=== PATIENT | male | born 1975 | race Caucasian/White ===

== ENCOUNTER 2016-09-11 12:46 | Emergency (ER) | payer SELFPAY ==
[~2016-09-11] VITALS: Ht 177.8 cm; Wt 140.6 kg
[~2016-09-11 12:46] MED LIST: DULO60CA6; INDO50CA PO; SULF1TAB23 PO; WARF7.5T
--- OUTSIDE RECORDS SUMMARY | 2016-09-11 12:52 | XMS REPORT | Continuity of Care Document ---
Author Author [facility] Organization [facility] Address Unknown Phone Unavailable Care Team Providers [facility] Name Role Phone David Yuan PCP [phone] Source Comments Some departments are not documenting in the electronic medical record. If you do not see the information that you expected, contact Release of Information in the Health Information Management department at [phone] for further assistance in locating additional records.[facility] Active Allergies and Adverse Reactions No Known Allergies Current Medications Prescription Sig. Disp. Refills Start End Date Status Date DULOXETINE HCL (CYMBALTA Take 120 mg by mouth Active PO) Daily. acetaminophen 650 mg Tab Take 1 Tab by mouth Every 10/08/19 Active 4-6 Hours as needed for 09 Fever > ... and Pain. FOR PAIN/FEVER enoxaparin (LOVENOX) 100 Inject 1.2 mL into 14 0 10/08/19 Active mg/mL Soln area(s) as directed Twice 09 Daily. nystatin (NYSTOP) 100,000 Apply to affected area 1 0 10/08/19 Active unit/g topical powder As Needed. 09 vancomycin (VANCOCIN) Administer 2,000 mg 1 0 10/08/19 Active 1000 mg/20 mL IVPB SolR through vein Every 8 09 2,000 mg Hours. warfarin (COUMADIN) 5 mg Take 1 Tab by mouth At 30 2 10/08/19 Active tablet Bedtime Daily. 09 acetaminophen/codeine Take 1 Tab by mouth Every 20 0 10/08/19 Active (TYLENOL NO.3) 300/30 mg 6 Hours as needed for 09 tablet Pain. Active Problems Problem Noted Date DVT 10/07/2008 Resolved Problems Problem Noted Date Resolved Date Sepsis(995.91) 10/07/2008 10/07/2008 Infection 09/29/2008 10/07/2008 Social History Tobacco Use Types Packs/Day Years Used Date Current Every Day Smoker Comments: not specified years and packs Alcohol Use Drinks/Week oz/Week Comments Yes not specified years and amount Last Filed Vital Signs Vital Sign Reading Time Taken Blood Pressure 114/81 10/07/2008 11:51 AM CDT Pulse 114 10/07/2008 11:51 AM CDT Temperature 36.5 C (97.7 F) 10/07/2008 11:51 AM CDT Respiratory Rate - - Height 1.753 m (5' 9") 10/01/2008 2:00 PM CDT Weight 124 kg (273 lb 5.9 oz) 10/01/2008 2:00 PM CDT Body Mass Index 40.35 10/01/2008 2:00 PM CDT Oxygen Saturation 95% 10/07/2008 11:51 AM CDT Plan of Care Health Maintenance Due Date Last Done Comments Physical (Comprehensive) 12/02/1983 Exam Pertussis Vaccine 12/02/1987 Tetanus Vaccine 1993 Influenza Vaccine 03/02/2016 Results from Last 3 Months Not on file
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
[2016-09-11 19:41] VITALS: BP 134/88
== END 2016-09-11 16:27 | disposition home or self-care (01) ==
LOC: EDUNIT# 12:46 → ER 12:48
DX: Z04.1 Encounter for examination and observation following transport accident (principal)
CPT/HCPCS: 99281

== ENCOUNTER 2017-11-03 06:06 | Emergency (ER) | payer BC, OTHER ==
[~2017-11-03] VITALS: Ht 177.8 cm; Wt 145.1 kg
[2017-11-03] MEDS ORDERED: fentaNYL INJECTION 100 MCG/2 ML AMP IVP STA (06:25)
[2017-11-03] MEDS ORDERED: KETOROLAC 30 MG/ML VIAL IVP STA (06:25)
[2017-11-03] MEDS ORDERED: NS IV 1000 ML 1,000 ML IV STA (06:25)
[2017-11-03] MEDS ORDERED: ONDANSETRON 4 MG/2 ML (SDV) Z0FRAN IVP ONE (06:30)
[2017-11-03 06:32] LABS: BASOPHILS # (AUTO) 0.2 10^3/uL (0.0-0.1); BASOPHILS % (AUTO) 2 % (0-10); EOSINOPHILS # (AUTO) 0.5 10^3/uL (0.0-0.3); EOSINOPHILS % (AUTO) 6 % (0-10); HEMATOCRIT 47 % (40-54); HEMOGLOBIN 16.2 G/DL (13.3-17.7); LYMPHOCYTES # (AUTO) 2.6 X 10^3 (1.0-4.0); LYMPHOCYTES % (AUTO) 31 % (12-44); MEAN CORPUSCULAR HEMOGLOBIN 29 PG (25-34); MEAN CORPUSCULAR HGB CONC 34 G/DL (32-36); MEAN CORPUSCULAR VOLUME 86 FL (80-99); MEAN PLATELET VOLUME 11.4 FL (7.4-10.4); MONOCYTES # (AUTO) 1.2 X 10^3 (0.0-1.0); MONOCYTES % (AUTO) 14 % (0-12); NEUTROPHILS # (AUTO) 4.1 X 10^3 (1.8-7.8); NEUTROPHILS % (AUTO) 48 % (42-75); PLATELET COUNT 214 10^3/uL (130-400); RED BLOOD COUNT 5.51 10^6/uL (4.35-5.85); RED CELL DISTRIBUTION WIDTH 14.3 % (10.0-14.5); WHITE BLOOD COUNT 8.6 10^3/uL (4.3-11.0)
--- NOTE | 2017-11-03 06:34 | ED Lower Extremity ---
General Chief Complaint: Lower Extremity Stated Complaint: POSS DVT, RIGHT LEG Source: patient Exam Limitations: no limitations History of Present Illness Date Seen by Provider: November 03, 2017 Time Seen by Provider: 06:15 Initial Comments Here with complaint of right leg pain normal on for a couple weeks but worse over the last couple of days. Reports he has history of blood clots in his leg is supposed to be on blood thinners. He has been off of those for 2 days and has had markedly worsening pain to the right upper thigh in the medial aspect. States it hurts when he coughs. Also notes nausea and diarrhea over the last couple weeks. Family history of factor V Leiden. Pain bad enough that he had to come in today from work. States that he cannot take the pain anymore. He did take a few acetaminophen tablets this morning. Onset: last week Severity: moderate, severe Pain/Injury Location: right leg, right thigh Method of Injury: unknown Modifying Factors: Improves With Immobilization; Worse With Movement Allergies and Home Medications Allergies Coded Allergies: No Known Drug Allergies (Verified , 09/28/08) Home Medications Hydrocodone Bit/Acetaminophen 1 Tab Tab, 1-2 EACH PO Q6H PRN for PAIN-MODERATE Prescribed by: DIANA SINCLAIR on 11/03/17 0807 Naproxen 500 Mg Tablet, 500 MG PO BID PRN for PAIN-MILD TO MODERATE Prescribed by: DIANA SINCLAIR on 11/03/17 0807 Patient Home Medication List Home Medication List Reviewed: Yes Constitutional: see HPI; No chills, No fever Respiratory: no symptoms reported; No cough, No short of breath Cardiovascular: No chest pain, No edema Gastrointestinal: No abdominal pain; diarrhea, nausea, vomiting Genitourinary: no symptoms reported Musculoskeletal: see HPI, muscle pain; No muscle weakness Skin: change in color; No lesions Psychiatric/Neurological: Denies Headache, Denies Weakness All Other Systems Reviewed Negative Unless Noted: Yes Past Uvboucf-Liamwj-Bgztqm Hx Past Med/Social Hx: Reviewed Nursing Past Med/Soc Hx Patient Social History Alcohol Use: Denies Use Recreational Drug Use: No Smoking Status: Current Everyday Smoker Type Used: Cigarettes 2nd Hand Smoke Exposure: No Recent Foreign Travel: No Contact w/Someone Who Travel: No Recent Hopitalizations: No Seasonal Allergies Seasonal Allergies: No Past Medical History Surgeries: Yes (VEIN STRIPPING SURG IN LEG ) Respiratory: No Cardiac: Yes (SVT) Deep Vein Thrombosis, Irregular Heartbeat Neurological: No Reproductive Disorders: No Genitourinary: No Gastrointestinal: No Musculoskeletal: No Endocrine: Yes Diabetes, Non-Insulin dep HEENT: No Cancer: No Psychosocial: No Blood Disorders: No Family Medical History Other Conditions/Hx (factor V Leiden, DVT) Physical Exam Vital Signs Vital Signs - First Documented 11/03/17 06:13 Temp 97.2 Pulse 92 Resp 22 B/P (MAP) 157/91 (113) Pulse Ox 99 O2 Delivery Room Air Capillary Refill : General Appearance: WD/WN, no apparent distress Neck: full range of motion, supple Cardiovascular: regular rate, rhythm, no murmur Respiratory: lungs clear, normal breath sounds Gastrointestinal: non tender, soft Legs: left leg non-tender, left leg normal inspection; bilateral leg normal range of motion; right leg soft tissue tenderness, right leg swelling, right leg other (tenderness along the medial aspect of the right upper leg and the right calf area.) Feet: bilateral foot non-tender, bilateral foot normal inspection, bilateral foot normal range of motion Neurologic/Tendon: normal sensation, normal motor functions Neurologic/Psychiatric: alert, oriented x 3 Skin: warm/dry, other (erythema to the right upper thigh medially) Progress/Results/Core Measures Results/Orders Lab Results Laboratory Tests Test 11/03/17 06:20 11/03/17 07:40 Range/Units White Blood Count 8.6 4.3-11.0 10^3/uL Red Blood Count 5.51 4.35-5.85 10^6/uL Hemoglobin 16.2 13.3-17.7 G/DL Hematocrit 47 40-54 % Mean Corpuscular Volume 86 80-99 FL Mean Corpuscular Hemoglobin 29 25-34 PG Mean Corpuscular Hemoglobin Concent 34 32-36 G/DL Red Cell Distribution Width 14.3 10.0-14.5 % Platelet Count 214 130-400 10^3/uL Mean Platelet Volume 11.4 H 7.4-10.4 FL Neutrophils (%) (Auto) 48 42-75 % Lymphocytes (%) (Auto) 31 12-44 % Monocytes (%) (Auto) 14 H 0-12 % Eosinophils (%) (Auto) 6 0-10 % Basophils (%) (Auto) 2 0-10 % Neutrophils # (Auto) 4.1 1.8-7.8 X 10^3 Lymphocytes # (Auto) 2.6 1.0-4.0 X 10^3 Monocytes # (Auto) 1.2 H 0.0-1.0 X 10^3 Eosinophils # (Auto) 0.5 H 0.0-0.3 10^3/uL Basophils # (Auto) 0.2 H 0.0-0.1 10^3/uL D-Dimer 1.99 H 0.00-0.49 UG/ML Sodium Level 140 142 135-145 MMOL/L Potassium Level 6.4 H 3.7 3.6-5.0 MMOL/L Chloride Level 109 H 111 H 98-107 MMOL/L Carbon Dioxide Level 21 25 21-32 MMOL/L Anion Gap 10 6 5-14 MMOL/L Blood Urea Nitrogen 14 14 7-18 MG/DL Creatinine 0.84 0.74 0.60-1.30 MG/DL Estimat Glomerular Filtration Rate > 60 > 60 BUN/Creatinine Ratio 17 19 Glucose Level 223 H 173 H 70-105 MG/DL Calcium Level 8.6 8.4 L 8.5-10.1 MG/DL Total Bilirubin 0.6 0.1-1.0 MG/DL Aspartate Amino Transf (AST/SGOT) 63 H 5-34 U/L Alanine Aminotransferase (ALT/SGPT) 75 H 0-55 U/L Alkaline Phosphatase 31 L 40-136 U/L Total Protein 7.5 6.4-8.2 GM/DL Albumin 4.0 3.2-4.5 GM/DL My Orders Orders - DIANA SINCLAIR MD Cbc With Automated Diff (11/03/17 06:23) Comprehensive Metabolic Panel (11/03/17 06:23) Fibrin Degradation Products (11/03/17 06:23) Saline Lock/Iv-Start (11/03/17 06:23) Us Venous Lower Ext Rt (11/03/17 06:23) Ondansetron Injection (Zofran Injectio (11/03/17 06:30) Ns Iv 1000 Ml (Sodium Chloride 0.9%) (11/03/17 06:25) Fentanyl Injection (Sublimaze Injection (11/03/17 06:25) Ketorolac Injection (Toradol Injection) (11/03/17 06:25) Basic Metabolic Panel (11/03/17 07:23) Hydromorphone Injection (Dilaudid Inject (11/03/17 07:47) Apixaban Tablet (Eliquis Tablet) (11/03/17 08:00) Medications Given in ED Current Medications Medications Dose Ordered Sig/Ivonne Route Start Time Stop Time Status Last Admin Dose Admin Apixaban 5 mg ONCE ONCE PO 11/03/17 08:00 11/03/17 08:01 DC 11/03/17 07:54 5 MG Ondansetron HCl 4 mg ONCE ONCE IVP 11/03/17 06:30 11/03/17 06:31 DC 11/03/17 06:35 4 MG Vital Signs/I&O 11/03/17 11/03/17 11/03/17 06:13 06:35 06:35 Temp 97.2 97.2 97.2 Pulse 92 Resp 22 B/P (MAP) 157/91 (113) Pulse Ox 99 O2 Delivery Room Air Progress Progress Note : Progress Note Seen and evaluated. We will check labs given patient history. IV established and normal saline 1 L bolus ordered due to report of diarrhea for 2 weeks. Fentanyl 50 g IV, Toradol 30 mg IV and Zofran 4 mg IV. Patient did have episode of vomiting in the ER prior to medication administration. 0720: Repeat basic chemistry panel ordered due to elevated potassium on initial order. Pain was relieved some. Patient unsure of his medicines. I did discuss the case with Dr. Thorpe, on-call for [facility]. He will try to figure out which medicines the patient is supposed to be on as well as pharmacy options. 0735: I did discuss the case with Dr. Newsome. She has access to his records. Patient apparently has history of being on Eliquis, metformin and atorvastatin. Apparently he is not on any of these. Ultimately we will give a dose of eliquis now and she will work with the [facility] pharmacy to figure out what continued anticoagulation he will be on and call him back. We have verified his phone number. Also, she is set him up for appointment at 0 [phone] on Sunday morning with his primary provider. I discussed at length the concerns about compliance with medication and the importance for his overall health and safety to take the meds as directed. He and his verbalize understanding and intent to comply. We did give Dilaudid 1 mg IV for persistent pain. I will write for hydrocodone and Naprosyn as outpatient for pain. Diagnostic Imaging Diagonstic Imaging: Ultrasound Plain Films/CT/US/NM/MRI: leg Comments NAME: JAJA LEE [facility] REC#: [id number] PT STATUS: REG ER : 1975 PHYSICIAN: DIANA SINCLAIR MD ADMIT DATE: 11/03/17/ER Draft Date of Exam:11/03/17 US VENOUS LOWER EXT RT PROCEDURE: US right lower extremity venous. TECHNIQUE: Multiple real-time grayscale images were obtained over the right lower extremity in various projections. Additional duplex Doppler and color Doppler images were also obtained. Comparison: 03/07/2014 Findings: The right common femoral, femoral and popliteal veins are patent by color doppler imaging and without DVT. Visualized proximal aspects of the deep femoral, posterior tibial and peroneal veins are also patent. All of the evaluated deep venous structures demonstrate normal compressibility and waveform augmentation where applicable. Occlusive thrombus is present within the superficial greater saphenous vein up to but not including the junction with the superficial femoral vein. Impression: 1. No right lower extremity deep venous thrombosis (DVT). 2. Superficial occlusive thrombus within the greater saphenous vein up to the junction with the superficial femoral vein. Dictated on workstation # [id number] Dict: 11/03/17705 Trans: 11/03/17 0710 [facility] [id number] Interpreted by: EBONI GALLEGOS MD Electronically signed by: Departure Impression Primary Impression: Acute superficial venous thrombosis of right lower extremity Additional Impression: Diabetes mellitus Qualified Codes: E11.9 - Type 2 diabetes mellitus without complications Disposition: 01 HOME, SELF-CARE Condition: Improved Departure-Patient Inst. Decision time for Depature: 08:01 Referrals: [facility] (PCP) Primary Care Physician RADHA NAVARRO APRN (Family) Primary Care Physician Patient Instructions: Deep Vein Thrombosis (Blood Clots in the Legs) (DC) Add. Discharge Instructions: All discharge instructions reviewed with patient and/or family. Voiced understanding. You have a superficial blood clot in the greater saphenous vein of the right leg. You need to be on blood thinners. We have started that here and the clinic will call you for further instructions related to which medicine you will be on and what he should do from here. Take medications as directed. Do not take ibuprofen with the prescribed Naprosyn as both are similar products. You may take the prescribed hydrocodone/acetaminophen or you may take acetaminophen 1000 mg every 8 hours but do not take both products as both have acetaminophen in them. Do not exceed 4000 mg of acetaminophen in a 24-hour period. Follow-up with your doctor at the clinic on Sunday at 9:40 a.m. for recheck appointment. Please keep this appointment. Return for worsening, fever , vomiting, weakness, breathing problems or other concerns as needed. Scripts Naproxen (Naprosyn) 500 Mg Tablet 500 MG PO BID PRN for PAIN-MILD TO MODERATE, #30 TAB 0 Refills Prov: DIANA SINCLAIR MD 11/03/17 Hydrocodone Bit/Acetaminophen (Hydrocodone/Acetaminophen 5/325mg Tablet) 1 Tab Tab 1-2 EACH PO Q6H PRN for PAIN-MODERATE, #15 TAB 0 Refills Prov: DIANA SINCLAIR MD 11/03/17 Work/School Note: Work Release Form Date Seen in the Emergency Department: November 03, 2017 Return to Work: November 05, 2017 Restrictions: No Restrictions Copy Copies To 1: AMADO NEWSOME TIMOTHY D MD November 03, 2017 06:34
[2017-11-03 06:49] LABS: ALANINE AMINOTRANSFERASE 75 U/L (0-55); ALKALINE PHOSPHATASE 31 U/L (40-136); BILIRUBIN,TOTAL 0.6 MG/DL (0.1-1.0); BUN/CREATININE RATIO 17; CALCIUM 8.6 MG/DL (8.5-10.1); CARBON DIOXIDE 21 MMOL/L (21-32); CHLORIDE 109 MMOL/L (98-107); CREATININE SERUM 0.84 MG/DL (0.60-1.30); GFR ESTIMATED > 60; GLUCOSE 223 MG/DL (70-105); POTASSIUM 6.4 MMOL/L (3.6-5.0); SODIUM 140 MMOL/L (135-145); TOTAL PROTEIN 7.5 GM/DL (6.4-8.2)
--- NOTE | 2017-11-03 07:10 | Diagnostic Imaging Report ---
PROCEDURE: US right lower extremity venous. TECHNIQUE: Multiple real-time grayscale images were obtained over the right lower extremity in various projections. Additional duplex Doppler and color Doppler images were also obtained. Comparison: 03/07/2014 Findings: The right common femoral, femoral and popliteal veins are patent by color doppler imaging and without DVT. Visualized proximal aspects of the deep femoral, posterior tibial and peroneal veins are also patent. All of the evaluated deep venous structures demonstrate normal compressibility and waveform augmentation where applicable. Occlusive thrombus is present within the superficial greater saphenous vein up to but not including the junction with the superficial femoral vein. Impression: 1. No right lower extremity deep venous thrombosis (DVT). 2. Superficial occlusive thrombus within the greater saphenous vein up to the junction with the superficial femoral vein. Dictated by: Dictated on workstation # [id number]
[2017-11-03] MEDS ORDERED: HYDROmorphone 2 MG/ML VIAL (DILAUDID) IVP STA (07:47)
[2017-11-03] MEDS ORDERED: APIXABAN 5 MG (ELIQUIS) TABLET PO ONE (08:00)
[2017-11-03 08:02] LABS: BUN/CREATININE RATIO 19; CALCIUM 8.4 MG/DL (8.5-10.1); CARBON DIOXIDE 25 MMOL/L (21-32); CHLORIDE 111 MMOL/L (98-107); CREATININE SERUM 0.74 MG/DL (0.60-1.30); GFR ESTIMATED > 60; GLUCOSE 173 MG/DL (70-105); POTASSIUM 3.7 MMOL/L (3.6-5.0); SODIUM 142 MMOL/L (135-145)
[2017-11-03] MEDS ORDERED: NAPR-1071 PO (08:07)
[2017-11-03] MEDS ORDERED: ACHD5005 PO (08:07)
[2017-11-03 08:20] VITALS: BP 112/84
== END 2017-11-03 08:20 | disposition home or self-care (01) ==
LOC: EDUNIT# 06:06 → ER 06:10
DX: I82.811 Embolism and thrombosis of superficial veins of right lower extremity (principal); E11.9 Type 2 diabetes mellitus without complications; F17.210 Nicotine dependence, cigarettes, uncomplicated; Z98.890 Other specified postprocedural states
CPT/HCPCS: 36415; 80048; 80053; 85025; 85379; 96361; 96374; 96375

== ENCOUNTER → 2017-11-13 | Outpatient (CLI) | payer OTHER ==
[~2017-11-13] MED LIST changes: +ACHD5005 PO; +CYCL10TA9 PO; +NAPR-1071 PO; +PRD20T PO
--- NOTE | 2017-11-13 12:47 | Diagnostic Imaging Report ---
PROCEDURE: US abdomen complete. TECHNIQUE: Multiple real-time grayscale images were obtained over the abdomen in various projections. INDICATION: Abdominal pain. FINDINGS: There are no prior studies available for comparison. The liver is enlarged measuring 24 cm in maximum dimension. The liver is more echogenic than usually seen and this appearance does suggest fatty metamorphosis. There is no focal mass involving the liver and the biliary tree is not abnormally dilated. There is no sign of cholelithiasis or acute cholecystitis. However, the common bile duct is not well visualized. The spleen is also mildly enlarged measuring 13.3 x 4.7 x 5.9 cm. Both kidneys are identified. The kidneys are normal in size with the right kidney measuring 14.0 x 6.7 x 5.8 cm and the left kidney is estimated to be 14.0 x 6.7 x 6.4 cm. There is no solid renal mass or hydronephrosis identified and the renal cortices are normal in thickness and echogenicity. The aorta is obscured by bowel gas as is the pancreas. The inferior vena cava is unremarkable, however. There is no mass or free fluid collection noted. IMPRESSION: 1. There is hepatosplenomegaly. The appearance of the liver does suggest fatty metamorphosis. 2. There is no sign of cholelithiasis or acute cholecystitis. 3. The common bile duct, the pancreas, and the aorta are obscured by bowel gas. Dictated by: Dictated on workstation # [id number]
== END ==
LOC: RAD 06:58
PROVIDERS: ATTEND Physician Assistant
DX: R16.2 Hepatomegaly with splenomegaly, not elsewhere classified (principal)
CPT/HCPCS: 76700

== ENCOUNTER 2017-11-19 12:13 | Emergency (ER) | payer OTHER ==
[~2017-11-19] VITALS: Ht 177.8 cm; Wt 145.1 kg
[~2017-11-19 12:13] MED LIST changes: -CYCL10TA9 PO; -PRD20T PO
[2017-11-19] MEDS ORDERED: NITROGLYCERIN 0.4 MG SL TABS BTL 25'S SL ONE (12:19)
[2017-11-19] MEDS ORDERED: ASPIRIN 81 MG CHEW (CHILDREN'S ASA) ONE (12:19)
[2017-11-19] MEDS: NITROGLYCERIN 0.4 MG SL TABS BTL 25'S SL PRN ×2 (12:26→12:38)
[2017-11-19] MEDS ORDERED: ASPIRIN 81 MG CHEW (CHILDREN'S ASA) PO ONE (12:30)
[2017-11-19] MEDS ORDERED: NS IV 1000 ML 1,000 ML IV SCH (12:30)
--- NOTE | 2017-11-19 12:32 | ED Chest Pain ---
General Stated Complaint: CP,SOA Source: patient, EMS Exam Limitations: no limitations History of Present Illness Date Seen by Provider: November 19, 2017 Time Seen by Provider: 12:20 Initial Comments The patient presents to the ER by EMS with a chief complaint that about an hour ago while at work he started feeling some chest pain described as like a rubber band squeezing around the middle of his chest with pressure in his substernal region and pain that is sharp in his back. He did not say its tearing. He says he has a history of DVTs and was on chronic treatment with Eliquis until he ran out about 4 weeks ago. He was out for about 1-1/2 weeks before getting restarted on it after discovering a superficial DVT in his right lower leg. His family has a history of clots. He smokes about a pack pack and a half of cigarettes per day. He has not had any recent surgeries or periods of immobilization. He is a oilfield plant and field operator. He is having some shortness of breath and does not use oxygen at home. He says that his pain gets worse when he takes a deep inspiration. He's been coughing but no more than usual and no more productive than usual. Nursing reports SPO2 96% on room air. This reports they gave him about 800 cc of normal saline on the way up. He has not had an aspirin today. He has no primary history of cardiac disease. He does have a history of SVTs however. Pain was 7 out of 10 on arrival. He is on Zoloft, a statin but nothing for hypertension. Allergies and Home Medications Allergies Coded Allergies: No Known Drug Allergies (Verified , 09/28/08) Home Medications Hydrocodone Bit/Acetaminophen 1 Tab Tab, 1-2 EACH PO Q6H PRN for PAIN-MODERATE Prescribed by: DIANA SINCLAIR on 11/03/17 0807 Naproxen 500 Mg Tablet, 500 MG PO BID PRN for PAIN-MILD TO MODERATE Prescribed by: DIANA SINCLAIR on 11/03/17 0807 Patient Home Medication List Home Medication List Reviewed: Yes Review of Systems Constitutional: No chills, No diaphoresis, No fever, No malaise EENTM: No Blurred Vision, No Double Vision Respiratory: Cough, Shortness of Air; Denies Wheezing Cardiovascular: See HPI, Chest Pain; Denies Irregular Heart Rate, Denies Palpitations, Denies Syncope Past Ezksjsr-Tkunnq-Cwjzpj Hx Patient Social History Type Used: Cigarettes 2nd Hand Smoke Exposure: No Recent Hopitalizations: No Seasonal Allergies Seasonal Allergies: No Past Medical History Surgeries: Yes (VEIN STRIPPING SURG IN LEG ) Respiratory: No Cardiac: Yes (SVT) Deep Vein Thrombosis, Irregular Heartbeat Neurological: No Reproductive Disorders: No Genitourinary: No Gastrointestinal: No Musculoskeletal: No Endocrine: Yes Diabetes, Non-Insulin dep HEENT: No Cancer: No Psychosocial: No Blood Disorders: No Family Medical History Other Conditions/Hx Physical Exam Vital Signs Vital Signs - First Documented 11/19/17 11/19/17 12:20 14:07 Pulse 85 Resp 22 B/P (MAP) 95/60 (72) 102/72 (82) 99/71 (80) Pulse Ox 96 O2 Delivery Room Air O2 Flow Rate 2.00 Capillary Refill : General Appearance: Anxious, Mild Distress, Obese HEENT: PERRL/EOMI, Normal ENT Inspection, Pharynx Normal Neck: Normal Inspection, Non Tender, Supple Respiratory: Chest Non Tender, Lungs Clear, Normal Breath Sounds, No Accessory Muscle Use, No Respiratory Distress Cardiovascular: Regular Rate, Rhythm, No Edema, Normal Peripheral Pulses Gastrointestinal: Normal Bowel Sounds, Non Tender, Soft Extremity: Normal Capillary Refill, No Pedal Edema, Calf Tenderness (right leg) Neurologic/Psychiatric: Alert, Oriented x3, No Motor/Sensory Deficits Skin: Normal Color, Warm/Dry Other comments Thoracic midline vertebral tenderness to palpation. Progress/Results/Core Measures Results/Orders Lab Results Laboratory Tests Test 11/19/17 11:44 11/19/17 13:48 Range/Units White Blood Count 9.7 4.3-11.0 10^3/uL Red Blood Count 5.67 4.35-5.85 10^6/uL Hemoglobin 16.7 13.3-17.7 G/DL Hematocrit 49 40-54 % Mean Corpuscular Volume 86 80-99 FL Mean Corpuscular Hemoglobin 30 25-34 PG Mean Corpuscular Hemoglobin Concent 34 32-36 G/DL Red Cell Distribution Width 14.1 10.0-14.5 % Platelet Count 229 130-400 10^3/uL Mean Platelet Volume 11.5 H 7.4-10.4 FL Neutrophils (%) (Auto) 56 42-75 % Lymphocytes (%) (Auto) 28 12-44 % Monocytes (%) (Auto) 11 0-12 % Eosinophils (%) (Auto) 5 0-10 % Basophils (%) (Auto) 1 0-10 % Neutrophils # (Auto) 5.4 1.8-7.8 X 10^3 Lymphocytes # (Auto) 2.7 1.0-4.0 X 10^3 Monocytes # (Auto) 1.0 0.0-1.0 X 10^3 Eosinophils # (Auto) 0.5 H 0.0-0.3 10^3/uL Basophils # (Auto) 0.1 0.0-0.1 10^3/uL Prothrombin Time 13.9 12.2-14.7 SEC INR Comment 1.1 0.8-1.4 Activated Partial Thromboplast Time 30 24-35 SEC Sodium Level 140 135-145 MMOL/L Potassium Level 3.9 3.6-5.0 MMOL/L Chloride Level 105 98-107 MMOL/L Carbon Dioxide Level 24 21-32 MMOL/L Anion Gap 11 5-14 MMOL/L Blood Urea Nitrogen 13 7-18 MG/DL Creatinine 0.76 0.60-1.30 MG/DL Estimat Glomerular Filtration Rate > 60 BUN/Creatinine Ratio 17 Glucose Level 169 H 70-105 MG/DL Calcium Level 9.3 8.5-10.1 MG/DL Magnesium Level 2.0 1.8-2.4 MG/DL Total Bilirubin 0.6 0.1-1.0 MG/DL Aspartate Amino Transf (AST/SGOT) 58 H 5-34 U/L Alanine Aminotransferase (ALT/SGPT) 86 H 0-55 U/L Alkaline Phosphatase 60 40-136 U/L Myoglobin 18.8 10.0-92.0 NG/ML Troponin I < 0.30 <0.30 NG/ML Total Protein 7.5 6.4-8.2 GM/DL Albumin 4.7 H 3.2-4.5 GM/DL Lipase 29 8-78 U/L Urine Color YELLOW Urine Clarity CLEAR Urine pH 6 5-9 Urine Specific [place] 1.015 L 1.016-1.022 Urine Protein NEGATIVE NEGATIVE Urine Glucose (UA) NEGATIVE NEGATIVE Urine Ketones NEGATIVE NEGATIVE Urine Nitrite NEGATIVE NEGATIVE Urine Bilirubin NEGATIVE NEGATIVE Urine Urobilinogen NORMAL NORMAL MG/DL Urine Leukocyte Esterase NEGATIVE NEGATIVE Urine RBC (Auto) NEGATIVE NEGATIVE Urine RBC NONE /HPF Urine WBC NONE /HPF Urine Squamous Epithelial Cells NONE /HPF Urine Crystals NONE /LPF Urine Bacteria NEGATIVE /HPF Urine Casts NONE /LPF Urine Mucus NEGATIVE /LPF Urine Culture Indicated NO Urine Opiates Screen NEGATIVE NEGATIVE Urine Oxycodone Screen NEGATIVE NEGATIVE Urine Methadone Screen NEGATIVE NEGATIVE Urine Propoxyphene Screen NEGATIVE NEGATIVE Urine Barbiturates Screen NEGATIVE NEGATIVE Ur Tricyclic Antidepressants Screen NEGATIVE NEGATIVE Urine Phencyclidine Screen NEGATIVE NEGATIVE Urine Amphetamines Screen NEGATIVE NEGATIVE Urine Methamphetamines Screen NEGATIVE NEGATIVE Urine Benzodiazepines Screen NEGATIVE NEGATIVE Urine Cocaine Screen NEGATIVE NEGATIVE Urine Cannabinoids Screen NEGATIVE NEGATIVE My Orders Orders - MANISH,EARLENE J Cbc With Automated Diff (11/19/17 12:) Magnesium (11/19/17 12:) Chest 1 View, Ap/Pa Only (11/19/17:) Ekg Tracing (11/19/17) Cardiac Profile 1 (11/19/17 12:) Comprehensive Metabolic Panel (11/19/17:) Myoglobin Serum (11/19/17:) Protime With Inr (11/19/17:) Partial Thromboplastin Time (11/19/17 12:) O2 (11/19/17:) Monitor-Rhythm Ecg Trace Only (11/19/17:) Lipid Panel (11/20/17 06:00) Aspirin Chewable Tablet (Baby Aspirin Ch (11/19/17 12:30) Nitroglycerin 0.4 Mg Btl 25's (Nitrostat (11/19/17 12:30) Saline Lock/Iv-Start (11/19/17 12:23) Lipase (11/19/17 12:23) Saline Lock/Iv-Start (11/19/17 12:23) Ns Iv 1000 Ml (Sodium Chloride 0.9%) (11/19/17 12:30) Ct Angio Chest W (11/19/17 12:23) Nitroglycerin 0.4 Mg Btl 25's (Nitrostat (11/19/17 12:19) Aspirin Chewable Tablet (Baby Aspirin Ch (11/19/17 12:19) Iohexol Injection (Omnipaque 350 Mg/Ml 1 (11/19/17 13:00) Ns (Ivpb) (Sodium Chloride 0.9%) (11/19/17 13:00) Ketorolac Injection (Toradol Injection) (11/19/17 13:15) Orthostatic Vital Signs (Adult (11/19/17 14:05) Ua Culture If Indicated (11/19/17 14:09) Drug Screen Stat (Urine) (11/19/17 14:09) Ketorolac Injection (Toradol Injection) (11/19/17 14:30) Ketorolac Injection (Toradol Injection) (11/19/17 14:30) Medications Given in ED Current Medications Medications Dose Ordered Sig/Ivonne Route Start Time Stop Time Status Last Admin Dose Admin Aspirin 324 mg ONCE ONCE PO 11/19/17 12:30 11/19/17 12:31 DC 11/19/17 12:26 324 MG Iohexol 125 ml ONCE ONCE IV 11/19/17 13:00 11/19/17 13:01 DC 11/19/17 13:18 150 ML Ketorolac Tromethamine 10 mg ONCE ONCE IVP 11/19/17 13:15 11/19/17 13:16 DC 11/19/17 13:43 10 MG Ketorolac Tromethamine 10 mg ONCE ONCE IVP 11/19/17 14:30 11/19/17 14:31 DC 11/19/17 14:27 10 MG Nitroglycerin 0.4 mg UD PRN SL 11/19/17 12:30 11/19/17 12:38 0.4 MG Sodium Chloride 250 ml ONCE ONCE IV 11/19/17 13:00 11/19/17 13:01 DC 11/19/17 13:18 250 ML Vital Signs/I&O 11/19/17 11/19/17 11/19/17 12:20 12:20 14:07 Pulse 85 65 76 78 Resp 22 B/P (MAP) 95/60 (72) 102/72 (82) 99/71 (80) Pulse Ox 96 98 O2 Delivery Room Air Nasal Cannula O2 Flow Rate 2.00 2.00 Progress Progress Note : Time: 12:33 Progress Note Concern for pulmonary embolism versus AAA versus cardiac versus pleuritic. He is having tenderness in his back so can also be acute back pain from the hospital a muscle skeletal/radiculopathy. Initial nitroglycerin brought his pain down to about a 5 out of 10 1410: Patient's blood pressure is low in the 90 systolic range. Orthostatics not significant. CT angiogram is unremarkable. His pain improved some with the nitroglycerin as well as the 10 mg Toradol. He says is coming back now we'll give him another 10 mg Toradol. -2 points. Low risk by the EDACS Score. If the patient also has: (1) EKG without new ischemic changes and (2) negative initial and 2-hour troponins, then this patient is safe for discharge to early outpatient follow-up investigation (or proceed to earlier inpatient testing). If EKG with ischemic changes or positive troponin, they are not low risk and require normal risk stratification. Initial ECG Impression Date: November 19, 2017 Initial ECG Impression Time: 12:34 Initial ECG Rate: 93 Initial ECG Rhythm: Normal Sinus Initial ECG Intervals: Normal Initial ECG Impression: Normal, Nonspecific Changes Initial ECG Comparisson: No Previous ECG Available Comment No ST-T wave elevation or depression. There is a little breathing artifact. No SVT. Diagnostic Imaging Diagonstic Imaging: Xray Plain Films/CT/US/NM/MRI: chest (1v) Comments [facility] [place] [place] [facility] [id number] PT STATUS: REG ER : 1975 PHYSICIAN: EARLENE HAMMOND MD ADMIT DATE: 11/19/17/ER Draft Date of Exam:11/19/17 CHEST 1 VIEW, AP/PA ONLY INDICATION: Shortness of air and dizziness. TIME OF EXAM: 1:47 p.m. COMPARISON: Correlation is made with prior study from 09/28/2008. FINDINGS: The heart size is normal. Right hemidiaphragm appears chronically elevated. The pulmonary vascularity is normal. No infiltrate, effusion, or pneumothorax is seen. IMPRESSION: No acute cardiopulmonary process is detected. Dictated on workstation # [id number] Dict: 11/19/17 1353 Trans: 11/19/17 1355 [id number] Interpreted by: LAMONT PARKER MD Electronically signed by: Reviewed: Reviewed by Me Diagonstic Imaging: CT (angio) Plain Films/CT/US/NM/MRI: chest Comments VIA [facility] [place], [place] NAME: [facility] REC#: [id number] PT STATUS: REG ER : 1975 PHYSICIAN: EARLENE HAMMOND MD ADMIT DATE: 11/19/17/ER Draft Date of Exam:11/19/17 CT ANGIO CHEST W PROCEDURE: CT angiography of the chest with contrast. TECHNIQUE: Multiple contiguous axial images were obtained through the chest after uneventful bolus administration of intravenous contrast. Reconstructed CTA MIP acquisitions were also performed. INDICATION: Chest pain and shortness of breath. COMPARISON: No prior studies are available for comparison. FINDINGS: Evaluation of the pulmonary arterial system is without evidence of thromboembolism. No definite filling defects are seen within the central, lobar or segmental branches. The thoracic aorta is normal caliber. No dissection is seen. No pericardial or pleural fluid is identified. No axillary lymphadenopathy is detected. Small lymph nodes in the mediastinum are noted, but no pathologically enlarged nodes are detected. Parenchymal evaluation is without evidence of infiltrate, nodule, or mass. Upper abdomen does show hepatic steatosis. IMPRESSION: No evidence of pulmonary embolism or thoracic aortic dissection. No acute feature is identified. Dictated on workstation # [id number] Dict: 11/19/17 1339 Trans: 11/19/17 1343 [id number] Interpreted by: LAMONT PARKER MD Electronically signed by: Reviewed: Reviewed by Me Departure Impression Primary Impression: Acute thoracic back pain Qualified Codes: M54.6 - Pain in thoracic spine Disposition: 01 HOME, SELF-CARE Condition: Improved Departure-Patient Inst. Decision time for Depature: 14:51 Ref[facility]: [facility] (PCP) Primary Care Physician RADHA NAVARRO APRN (Family) Primary Care Physician Patient Instructions: Upper Back Pain (DC) Add. Discharge Instructions: Follow-up with your primary care provider within the next 1-2 weeks. If you're having pain you should use Tylenol 1000 mg every 8 hours. You should avoid NSAIDs such as ibuprofen, Aleve, Naprosyn as this will interact with your blood thinner. If you have breakthrough pain and muscle creams such as icy hot or Biofreeze do not help then you can use the hydrocodone one tablet every 6 hours as needed. The steroids should start getting in and about 12-24 hours and last for about 5-7 days. They may cause you to have difficulty sleeping, flushing the face but that will go away. Scripts Hydrocodone Bit/Acetaminophen (Hydrocodone/Acetaminophen 5/325mg Tablet) 1 Tab Tab 1-2 EACH PO Q6H PRN for BREAKTHROUGH PAIN, #20 TAB 0 Refills Prov: EARLENE HAMMOND 11/19/17 Work/School Note: Work Release Form Date Seen in the Emergency Department: November 19, 2017 Return to Work: November 20, 2017 Restrictions: No Restrictions Copy Copies To 1: AMADO RASMUSSEN TITUS J November 19, 2017 12:32
[2017-11-19 12:39] LABS: BASOPHILS # (AUTO) 0.1 10^3/uL (0.0-0.1); BASOPHILS % (AUTO) 1 % (0-10); EOSINOPHILS # (AUTO) 0.5 10^3/uL (0.0-0.3); EOSINOPHILS % (AUTO) 5 % (0-10); HEMATOCRIT 49 % (40-54); HEMOGLOBIN 16.7 G/DL (13.3-17.7); LYMPHOCYTES # (AUTO) 2.7 X 10^3 (1.0-4.0); LYMPHOCYTES % (AUTO) 28 % (12-44); MEAN CORPUSCULAR HEMOGLOBIN 30 PG (25-34); MEAN CORPUSCULAR HGB CONC 34 G/DL (32-36); MEAN CORPUSCULAR VOLUME 86 FL (80-99); MEAN PLATELET VOLUME 11.5 FL (7.4-10.4); MONOCYTES % (AUTO) 11 % (0-12); NEUTROPHILS # (AUTO) 5.4 X 10^3 (1.8-7.8); NEUTROPHILS % (AUTO) 56 % (42-75); PLATELET COUNT 229 10^3/uL (130-400); RED BLOOD COUNT 5.67 10^6/uL (4.35-5.85); RED CELL DISTRIBUTION WIDTH 14.1 % (10.0-14.5); WHITE BLOOD COUNT 9.7 10^3/uL (4.3-11.0)
[2017-11-19] MEDS ORDERED: NS 250 ML (IVPB) BAG IV ONE (13:00)
[2017-11-19] MEDS ORDERED: IOHEXOL 350 MG/ML 150 ML (OMNIPAQUE 350) VIAL IV ONE (13:00)
[2017-11-19 13:08] LABS: ALANINE AMINOTRANSFERASE 86 U/L (0-55); ALBUMIN 4.7 GM/DL (3.2-4.5); ALKALINE PHOSPHATASE 60 U/L (40-136); BILIRUBIN,TOTAL 0.6 MG/DL (0.1-1.0); BUN/CREATININE RATIO 17; CALCIUM 9.3 MG/DL (8.5-10.1); CARBON DIOXIDE 24 MMOL/L (21-32); CHLORIDE 105 MMOL/L (98-107); CREATININE SERUM 0.76 MG/DL (0.60-1.30); GFR ESTIMATED > 60; GLUCOSE 169 MG/DL (70-105); LIPASE 29 U/L (8-78); POTASSIUM 3.9 MMOL/L (3.6-5.0); SODIUM 140 MMOL/L (135-145); TOTAL PROTEIN 7.5 GM/DL (6.4-8.2)
[2017-11-19] MEDS ORDERED: KETOROLAC 30 MG/ML VIAL IVP ONE ×2 (13:15→14:30)
[2017-11-19 13:18] LABS: MYOGLOBIN SERUM 18.8 NG/ML (10.0-92.0)
[2017-11-19 13:22] LABS: INR 1.1 (0.8-1.4); PROTHROMBIN TIME PATIENT 13.9 SEC (12.2-14.7)
--- NOTE | 2017-11-19 13:44 | Diagnostic Imaging Report ---
PROCEDURE: CT angiography of the chest with contrast. TECHNIQUE: Multiple contiguous axial images were obtained through the chest after uneventful bolus administration of intravenous contrast. Reconstructed CTA MIP acquisitions were also performed. INDICATION: Chest pain and shortness of breath. COMPARISON: No prior studies are available for comparison. FINDINGS: Evaluation of the pulmonary arterial system is without evidence of thromboembolism. No definite filling defects are seen within the central, lobar or segmental branches. The thoracic aorta is normal caliber. No dissection is seen. No pericardial or pleural fluid is identified. No axillary lymphadenopathy is detected. Small lymph nodes in the mediastinum are noted, but no pathologically enlarged nodes are detected. Parenchymal evaluation is without evidence of infiltrate, nodule, or mass. Upper abdomen does show hepatic steatosis. IMPRESSION: No evidence of pulmonary embolism or thoracic aortic dissection. No acute feature is identified. Dictated by: Dictated on workstation # [id number]
--- NOTE | 2017-11-19 13:56 | Diagnostic Imaging Report ---
INDICATION: Shortness of air and dizziness. TIME OF EXAM: 1:47 p.m. COMPARISON: Correlation is made with prior study from 09/28/2008. FINDINGS: The heart size is normal. Right hemidiaphragm appears chronically elevated. The pulmonary vascularity is normal. No infiltrate, effusion, or pneumothorax is seen. IMPRESSION: No acute cardiopulmonary process is detected. Dictated by: Dictated on workstation # [id number]
[2017-11-19 14:07] VITALS: BP_SYST 102; BP_SYST 95; BP_SYST 99; BP_DIAS 60; BP_DIAS 71; BP_DIAS 72
[2017-11-19 14:20] LABS: BILIRUBIN,URINE NEGATIVE (NEGATIVE); CLARITY,URINE CLEAR; COLOR,URINE YELLOW; GLUCOSE, URINE (UA) NEGATIVE (NEGATIVE); KETONES,URINE NEGATIVE (NEGATIVE); LEUKOCYTE ESTERASE ,URINE NEGATIVE (NEGATIVE); NITRITE,URINE NEGATIVE (NEGATIVE); PH,URINE 6 (5-9); PROTEIN,URINE NEGATIVE (NEGATIVE); UROBILINOGEN,URINE NORMAL (NORMAL)
[2017-11-19] MEDS ORDERED: KETOROLAC 15 MG/ML VIAL IVP ONE (14:30)
[2017-11-19 14:32] LABS: AMPHETAMINE SCREEN, URINE NEGATIVE (NEGATIVE); BARBITURATE SCREEN URINE NEGATIVE (NEGATIVE); BENZODIAZEPINES SCREEN URINE NEGATIVE (NEGATIVE); CANNABINOID SCREEN, URINE NEGATIVE (NEGATIVE); COCAINE SCREEN URINE NEGATIVE (NEGATIVE); METHADONE STAT NEGATIVE (NEGATIVE); METHAMPHETAMINE SCREEN URINE S NEGATIVE (NEGATIVE); OPIATE SCREEN URINE NEGATIVE (NEGATIVE); OXYCODONE STAT NEGATIVE (NEGATIVE); PROPOXYPHENE STAT NEGATIVE (NEGATIVE); TRICYCLIC ANTIDEPRESSANTS SCRE NEGATIVE (NEGATIVE)
[2017-11-19 14:33] LABS: BACTERIA,URINE NEGATIVE /HPF
[2017-11-19] MEDS ORDERED: ACHD5005 PO (14:55)
[2017-11-19] MEDS ORDERED: fentaNYL INJECTION 100 MCG/2 ML AMP IVP ONE (15:00)
[2017-11-19] MEDS ORDERED: ORPHENADRINE 60 MG/2 ML (NORFLEX) AMP IM ONE (15:00)
[2017-11-19] MEDS ORDERED: PRD20T PO (15:01)
[2017-11-19] MEDS ORDERED: CYCL10TA9 PO (15:24)
[2017-11-19 16:00] VITALS: BP 99/72
--- OUTSIDE RECORDS SUMMARY | 2017-11-19 18:59 | XMS REPORT ---
Author Author RADHA NAVARRO Organization [facility] Address [address] [place] [address] Care Team Providers Care Certified Emergency Vehicle Technician Name Role Phone RADHA NAVARRO Unavailable PROBLEMS Type Condition ICD9-CM Code [id number] Code Onset Dates Condition Status SNOMED Code Problem Excessive daytime sleepiness G47.19 Active 465321261065 Problem Tobacco abuse Z72.0 Active 828935671 Problem Major depressive disorder, single episode, unspecified F32.9 Active 41617786 Problem Low serum testosterone level E29.1 Active 656126920 Problem Hyperinsulinemia E16.1 Active 01225122 Problem Elevated hemoglobin A1c measurement R73.09 Active 173867742 Problem Night terrors, adult F51.4 Active 21706009 Problem Essential hypertension I10 Active 62974995 Problem Chronic fatigue R53.82 Active 81683930 Problem 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 Active 01927156 Problem Tobacco abuse counseling Z71.6 Active 007741791 Problem Family history of heart disease Z82.49 Active 636772296 Problem Morbid (severe) obesity due to excess calories E66.01 Active 283334929 ALLERGIES No Information SOCIAL HISTORY Never Assessed PLAN OF CARE VITAL SIGNS MEDICATIONS Medication Instructions Dosage Frequency Start Date End Date Duration Status MetFORMIN HCl ER 500 mg Orally twice a day one tablet daily with evening meal x 1 week, then one tablet bid with meals 12h 30 Oct, 2016 30 day(s) Active RESULTS No Results PROCEDURES No Known procedures IMMUNIZATIONS No Known Immunizations MEDICAL (GENERAL) HISTORY Type Description Date Medical History supraventricular tachycardia Medical History deep vein thrombosis Medical History depression Surgical History loop recorder removed in 2008- placed at [facility] in [place] Surgical History vein stripping-Dr. Lau Surgical History total tooth extraction Hospitalization History SVT
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
--- OUTSIDE RECORDS SUMMARY | 2017-11-19 18:59 | XMS REPORT | Clinical Summary ---
Author Author [facility] Organization [facility] Address Unknown Phone Unavailable Care Team Providers Care Infrastructure Tech Name Role Phone David Yuan PCP Porsha Montanez MD Unavailable Source Comments Some departments are not documenting in the electronic medical record. If you do not see the information that you expected, contact Release of Information in the Health Information Management department at [phone] for further assistance in locating additional records.[facility] Allergies No Known Allergies Current Medications Prescription Sig. [...] Date Sepsis(995.91) 10/07/2008 10/07/2008 Infection 09/29/2008 10/07/2008 Family History Medical History Relation Name Comments Heart Failure Father Heart Failure Maternal Aunt Cancer Maternal Grandmother Diabetes Maternal Grandmother Diabetes Mother Seizures Other son Relation Name Status Comments Father Maternal Aunt Maternal Grandmother Mother Alive Other son Alive Social History Tobacco Use Types Packs/Day Years Used Date Current Every Day Smoker Comments: not specified years and packs Alcohol Use Drinks/Week oz/Week Comments Yes not specified years and amount Sex Assigned at Date Recorded Not on file Last Filed Vital Signs Vital Sign Reading Time Taken Blood Pressure 114/81 10/07/2008 11:51 AM CDT Pulse 114 10/07/2008 11:51 AM CDT Temperature 36.5 C (97.7 F) 10/07/2008 11:51 AM CDT Respiratory Rate - - Oxygen Saturation 95% 10/07/2008 11:51 AM CDT Inhaled Oxygen - - Concentration Weight 124 kg (273 lb 5.9 oz) 10/01/2008 2:00 PM CDT Height 175.3 cm (5' 9") 10/01/2008 2:00 PM CDT Body Mass Index 40.37 10/01/2008 2:00 PM CDT Plan of Treatment Health Maintenance Due Date Last Done Comments PHYSICAL (COMPREHENSIVE) 12/02/1983 EXAM PERTUSSIS VACCINE 12/02/1987 TETANUS VACCINE 1993 INFLUENZA VACCINE 04/01/2018 HIV SCREENING Completed 10/05/2008, 09/29/2008 Results Not on filefrom Last 3 Months
--- OUTSIDE RECORDS SUMMARY | 2017-11-19 18:59 | XMS REPORT ---
Author Author RADHA NAVARRO Organization [facility] Address [address] [place] [address] Care Team Providers Care Hosiery Bagger Name Role Phone RADHA NAVARRO Unavailable PROBLEMS Type Condition ICD9-CM Code [id number] Code Onset Dates Condition Status SNOMED Code Problem Major depressive disorder, single episode, unspecified F32.9 Active 10720979 Problem Tobacco abuse counseling Z71.6 Active 133380093 Problem Tobacco abuse Z72.0 Active 422554359 Problem Body mass index (BMI) of 45.0-49.9 in adult Z68.42 Active 114635955 Problem Nonadherence with dietary restriction Z91.11 Active 237220721 Problem Family history of heart disease Z82.49 Active 527547879 Problem 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 Active 09910513 Problem Essential hypertension I10 Active 53775869 Problem Chronic fatigue R53.82 Active 00065453 Problem Elevated LDL cholesterol level E78.00 Active 074397252 Problem Type 2 diabetes mellitus without complication, without long-term current use of insulin E11.9 Active 719918561 Problem Low serum testosterone level E29.1 Active 052361908 Problem Excessive daytime sleepiness G47.19 Active 249774647999 Problem Hyperinsulinemia E16.1 Active 65515680 Problem Night terrors, adult F51.4 Active 30438210 ALLERGIES No Information ENCOUNTERS Encounter Location Date Diagnosis [facility] [id number], [place] [address] Aug, Influenza-like symptoms R68.89 and Body aches R52 [facility] [address], [place] [address] Aug, Low serum testosterone level E29.1 [facility] [id number], [place] [address] Aug, Chronic fatigue R53.82 [address] [address] Aug, [id number] [place] [address] Jul, [address] [address] Jul, Hyperinsulinemia E16.1 ; 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 ; Tobacco abuse Z72.0 ; Body mass index (BMI) of 45.0-49.9 in adult Z68.42 ; Morbid (severe) obesity due to excess calories E66.01 ; Low serum testosterone level E29.1 ; Essential hypertension I10 ; Nonadherence to medical treatment Z91.19 and Nonadherence with dietary restriction Z91.11 [address] [address] Jul, [id number] [place] [address] May, [id number] [place] [address] Nov, Low serum testosterone level E29.1 and Chronic fatigue R53.82 [address] [address] Nov, Hyperinsulinemia E16.1 ; Tobacco abuse Z72.0 ; Morbid ( severe) obesity due to excess calories E66.01 ; Elevated blood pressure reading in office without diagnosis of hypertension R03.0 ; Chronic fatigue R53.82 and Night terrors, adult F51.4 [address], [place] [address] October, Low serum testosterone level E29.1 [address], [place] [address] October, Encounter for routine adult health examination with abnormal findings Z00.01 ; Morbid (severe) obesity due to excess calories E66.01 ; Family history of heart disease Z82.49 ; Tobacco abuse Z72.0 ; Major depressive disorder, single episode, unspecified F32.9 ; Tobacco abuse counseling Z71.6 and 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 [facility] [address] [facility] [id number] [place] [address] 18 Sep, 2016 Encounter for routine adult health examination with abnormal findings Z00.01 ; Morbid (severe) obesity due to excess calories E66.01 ; Family history of heart disease Z82.49 ; Tobacco abuse Z72.0 ; Tobacco abuse counseling Z71.6 ; 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 ; Major depressive disorder, single episode, unspecified F32.9 ; Night terrors, adult F51.4 ; Snoring R06.83 ; Excessive daytime sleepiness G47.19 and Decreased libido without sexual dysfunction R68.82 IMMUNIZATIONS No Known Immunizations SOCIAL HISTORY Never Assessed REASON FOR VISIT Lab (walk-in)--[facility] PLAN OF CARE VITAL SIGNS MEDICATIONS No Known Medications RESULTS Name Result Date Reference Range TESTOSTERONE, TOTAL 2016-12-26 Testosterone, Serum 569 [id number] Comment: VITAMIN D, 25-H 2016-12-26 Vitamin D, 25-Hydroxy 24.6 30.0-100.0 PROCEDURES Procedure Date Ordered Result Body Site ASSAY OF TOTAL TESTOSTERONE December 26, 2016 ASSAY OF VITAMIN D December 26, 2016 VENIPUNCT, ROUTINE* December 26, 2016 INSTRUCTIONS MEDICATIONS ADMINISTERED No Known Medications MEDICAL (GENERAL) HISTORY Type Description Date Medical History supraventricular tachycardia Medical History deep vein thrombosis Medical History depression Surgical History loop recorder removed in 2008- placed at [facility] in [place] Surgical History vein stripping-Dr. Lau Surgical History total tooth extraction Hospitalization History SVT
--- OUTSIDE RECORDS SUMMARY | 2017-11-19 18:59 | XMS REPORT ---
Author Author NAVARROCARY GrantELE Organization [facility] Address [address] [place] [address] Care Team Providers Care Business Records Manager Name Role Phone RADHA NAVARRO Unavailable PROBLEMS Type Condition ICD9-CM Code JRS67-SX Code Onset Dates Condition Status SNOMED Code Problem Excessive daytime sleepiness G47.19 Active 262362787230 Problem Tobacco abuse Z72.0 Active 508177135 Problem Major depressive disorder, single episode, unspecified F32.9 Active 55715413 Problem Low serum testosterone level E29.1 Active 807201169 Problem Hyperinsulinemia E16.1 Active 13047673 Problem Elevated hemoglobin A1c measurement R73.09 Active 457343385 Problem Night terrors, adult F51.4 Active 30207621 Problem Essential hypertension I10 Active 41526414 Problem Chronic fatigue R53.82 Active 35464873 Problem 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 Active 07758564 Problem Tobacco abuse counseling Z71.6 Active 514116948 Problem Family history of heart disease Z82.49 Active 132617685 Problem Morbid (severe) obesity due to excess calories E66.01 Active 577054193 ALLERGIES No Information SOCIAL HISTORY Never Assessed PLAN OF CARE VITAL SIGNS MEDICATIONS Unknown Medications RESULTS Name Result Date Reference Range TESTOSTERONE, TOTAL 2016-11-01 Testosterone, Serum [phone] Comment: THYROID ANALYZER 2016-11-01 TSH 0.604 0.450-4.500 A1C 2016-11-01 Hemoglobin A1c 6.2 4.8-5.6 INSULIN LEVEL 2016-11-01 Insulin 68.1 2.6-24.9 CBC 2016-11-01 WBC 9.1 3.4-10.8 RBC 5.50 4.14-5.80 Hemoglobin 16.5 12.6-17.7 Hematocrit 47.9 37.5-51.0 MCV 87 79-97 MCH 30.0 26.6-33.0 MCHC 34.4 31.5-35.7 RDW 13.8 12.3-15.4 Platelets 265 150-379 Neutrophils 53 Lymphs 30 Monocytes 10 Eos 6 Basos 1 Neutrophils (Absolute) 4.8 1.4-7.0 Lymphs (Absolute) 2.8 0.7-3.1 Monocytes(Absolute) 0.9 0.1-0.9 Eos (Absolute) 0.5 0.0-0.4 Baso (Absolute) 0.1 0.0-0.2 Immature Granulocytes 0 Immature Grans (Abs) 0.0 0.0-0.1 LIPID PANEL 2016-11-01 Cholesterol, Total 154 100-199 Triglycerides 113 0-149 HDL Cholesterol 39 >39 VLDL Cholesterol Savage 23 5-40 LDL Cholesterol Calc 92 0-99 CMP 2016-11-01 Glucose, Serum 108 65-99 BUN 17 6-20 Creatinine, Serum 0.76 0.76-1.27 eGFR If NonAfricn Am 115 >59 eGFR If Africn Am 133 >59 BUN/Creatinine Ratio 22 9-20 Sodium, Serum 143 134-144 Potassium, Serum 4.9 3.5-5.2 Chloride, Serum 103 96-106 Carbon Dioxide, Total 22 18-29 Calcium, Serum 9.5 8.7-10.2 Protein, Total, Serum 6.8 6.0-8.5 Albumin, Serum 4.4 3.5-5.5 Globulin, Total 2.4 1.5-4.5 A/G Ratio 1.8 1.2-2.2 Bilirubin, Total <0.2 0.0-1.2 Alkaline Phosphatase, S 53 39-117 AST (SGOT) 22 0-40 ALT (SGPT) 32 0-44 PROCEDURES Procedure Date Ordered Result Body Site COMPLETE CBC W/AUTO DIFF WBC November 01, 2016 COMPREHEN METABOLIC PANEL November 01, 2016 VENIPUNCT, ROUTINE* November 01, 2016 ASSAY OF TOTAL TESTOSTERONE November 01, 2016 ASSAY OF INSULIN November 01, 2016 GLYCATED HEMOGLOBIN TEST November 01, 2016 ASSAY THYROID STIM HORMONE November 01, 2016 LIPID PANEL November 01, 2016 IMMUNIZATIONS No Known Immunizations MEDICAL (GENERAL) HISTORY Type Description Date Medical History supraventricular tachycardia Medical History deep vein thrombosis Medical History depression Surgical History loop recorder removed in 2008- placed at [facility] in [place] Surgical History vein stripping-Dr. Lau Surgical History total tooth extraction Hospitalization History SVT
== END 2017-11-19 16:00 | disposition home or self-care (01) ==
LOC: EDUNIT# 12:13 → ER 12:14
DX: M54.6 Pain in thoracic spine (principal); I10 Essential (primary) hypertension; E11.9 Type 2 diabetes mellitus without complications; F17.210 Nicotine dependence, cigarettes, uncomplicated; Z86.718 Personal history of other venous thrombosis and embolism; Z79.01 Long term (current) use of anticoagulants
CPT/HCPCS: 36415; 71045; 71275; 80053; 80306; 81000; 83690; 83735; 83874; 84484; 85025; 85610; 85730; 93005; 93041; 96361; 96374; 96375

== ENCOUNTER 2019-01-05 13:14 | Emergency (ER) | payer OTHER ==
[~2019-01-05] VITALS: Ht 175.3 cm; Wt 140.6 kg
[~2019-01-05 13:14] MED LIST changes: +CYCL10TA9 PO; +PRD20T PO
--- OUTSIDE RECORDS SUMMARY | 2019-01-05 13:20 | XMS REPORT | Clinical Summary ---
Author Author [facility] Organization [facility] Address Unknown Phone Unavailable Care Team Providers Care Analytical Lab Technician Name Role Phone YuanDavid rai PCP Porsha Montanez MD Unavailable Source Comments Some departments are not documenting in the electronic medical record. If you d o not see the information that you expected, contact Release of Information in merged with [facility] [employer] Information Management department at [phone] for further assistan jeremie in locating additional records.[facility] Allergies No Known Allergies Medications End Date Status Medication Sig Dispensed Refills Start Date Active DULOXETINE HCL (CYMBALTA Take 120 mg 0 PO) by mouth Daily. Active acetaminophen 650 mg Tab Take 1 Tab by 0 08/200 mouth Every 9 4-6 Hours as needed for Fever > ... and Pain. FOR PAIN/FEVER Active enoxaparin (LOVENOX) 100 Inject 1.2 mL 14 0 /08/200 mg/mL Soln into area(s) 9 as directed Twice Daily. Active nystatin (NYSTOP) 100,000 Apply to 1 0 10/07/200 unit/g topical powder affected area 9 As Needed. Active vancomycin (VANCOCIN) Administer 1 0 04/08/200 1000 mg/20 mL IVPB SolR 2,000 mg 9 2,000 mg through vein Every 8 Hours. Active warfarin (COUMADIN) 5 mg Take 1 Tab by 30 2 10/07/200 tablet mouth At 9 Bedtime Daily. Active acetaminophen/codeine Take 1 Tab by 20 0 /08/200 (TYLENOL NO.3) 300/30 mg mouth Every 6 9 tablet Hours as needed for Pain. Active Problems Problem Noted Date DVT 10/07/2008 Resolved Problems Problem Noted Date Resolved Date Sepsis(995.91) 10/07/2008 10/07/2008 Infection 09/29/2008 10/07/2008 Family History Medical History Relation Name Comments Heart Failure Father Heart Failure Maternal Aunt Cancer Maternal Grandmother Diabetes Maternal Grandmother Diabetes Mother Seizures Other son Relation Name Status Comments Father Maternal Aunt Maternal Grandmother Mother Alive Other son Alive Social History Date Tobacco Use Types Packs/Day Years Used Current Every Day Smoker Comments: not specified years and packs Drinks/Week oz/Week Comments Alcohol Use not specified years and amount Yes Sex Assigned at Date Recorded Not on file Industry Job Start Date Occupation Not on file Not on file Not on file Travel End Travel History Travel Start No recent travel history available. Last Filed Vital Signs Reading Time Taken Comments Vital Sign 114/81 10/07/2008 11:51 AM CDT Blood Pressure 114 10/07/2008 11:51 AM CDT Pulse 36.5 C (97.7 F) 10/07/2008 11:51 AM CDT Temperature - - Respiratory Rate 95% 10/07/2008 11:51 AM CDT Oxygen Saturation - - Inhaled Oxygen Concentration 124 kg (273 lb 5.9 oz) 10/01/2008 2:00 PM CDT Weight 175.3 cm (5' 9") 10/01/2008 2:00 PM CDT Height 40.37 10/01/2008 2:00 PM CDT Body Mass Index Plan of Treatment Health Maintenance Due Date Last Done Comments PHYSICAL (COMPREHENSIVE) 12/02/1983 EXAM DTAP/TDAP VACCINES ( - 1994 Tdap) INFLUENZA VACCINE 04/01/2019 HIV SCREENING Completed 10/05/2008, 09/29/2008 Results Not on filefrom Last 3 Months Advance Directives Date Inactivated Comments Code Status Date Activated 10/07/2008 10:06 PM Full Code 09/29/2008 4:54 AM
--- OUTSIDE RECORDS SUMMARY | 2019-01-05 13:21 | XMS REPORT ---
Author Author RADHA NAVARRO Organization [facility] Address [address] [place] [address] Care Team Providers Care Print Production Coordinator Name Role Phone RADHA NAVARRO Unavailable PROBLEMS Type Condition ICD9-CM Code IIO85-MS Code Onset Dates Condition Status SNOMED Code Problem Tobacco abuse Z72.0 Active 871196940 Problem 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 Active 46890594 Problem Tobacco abuse counseling Z71.6 Active 028060260 Problem Current moderate episode of major depressive disorder without prior episode F32.1 Active 05939624 Problem Non-adherence to medical treatment Z91.19 Active 918581102 Problem Chronic fatigue R53.82 Active 85460557 Problem Essential hypertension I10 Active 85452938 Problem Nonadherence with dietary restriction Z91.11 Active 808306386 Problem Body mass index (BMI) of 45.0-49.9 in adult Z68.42 Active 786276567 Problem Type 2 diabetes mellitus without complication, without long-term current use of insulin E11.9 Active 511891047 Problem Low serum testosterone level E29.1 Active 364546670 Problem Elevated LDL cholesterol level E78.00 Active 594779731 Problem Hyperinsulinemia E16.1 Active 69025240 Problem Night terrors, adult F51.4 Active 41697420 ALLERGIES No Information ENCOUNTERS Encounter Location Date Diagnosis [facility] [address] [facility] [id number] [address] Jan, [facility] [id number] [address] October, [facility] [address] [address] October, [facility] [id number] [address] October, Acute deep vein thrombosis (DVT) of femoral vein of right lower extremity I82.411 ; Chronic fatigue R53.82 ; Essential hypertension I10 ; Hyperinsulinemia E16.1 ; Elevated LDL cholesterol level E78.00 ; Tobacco abuse Z72.0 ; Tobacco abuse counseling Z71.6 ; Type 2 diabetes mellitus without complication, without long-term current use of insulin E11.9 ; Current moderate episode of major depressive disorder without prior episode F32.1 ; Non-adherence to medical treatment Z91.19 and Right upper quadrant pain R10.11 [place] [id number] [place] [address] 05 Oct, 2017 Influenza-like symptoms R68.89 [place] [address] [address] 08 Aug, 2017 Influenza-like symptoms R68.89 and Body aches R52 [place] [id number] [place] [address] 02 Aug, 2017 Low serum testosterone level E29.1 [place] [id number] [place] [address] 02 Aug, 2017 Chronic fatigue R53.82 [place] [address] [address] 02 Aug, 2017 [place] [id number] [place] [address] Jul, [place] [id number] [place] [address] 15 Jul, 2017 Hyperinsulinemia E16.1 ; 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 ; Tobacco abuse Z72.0 ; Body mass index (BMI) of 45.0-49.9 in adult Z68.42 ; Morbid (severe) obesity due to excess calories E66.01 ; Low serum testosterone level E29.1 ; Essential hypertension I10 ; Nonadherence to medical treatment Z91.19 and Nonadherence with dietary restriction Z91.11 [place] [id number] [place] [address] Jul, [address] [address] May, [place] [id number] [place] [address] Nov, Low serum testosterone level E29.1 and Chronic fatigue R53.82 [address] [id number] [place] [address] Nov, Hyperinsulinemia E16.1 ; Tobacco abuse Z72.0 ; Morbid (severe) obesity due to excess calories E66.01 ; Elevated blood pressure reading in office without diagnosis of hypertension R03.0 ; Chronic fatigue R53.82 and Night terrors, adult F51.4 [place] [id number] [place] [address] 30 Oct, 2016 Low serum testosterone level E29.1 [place] [id number] [place] [address] October, Encounter for routine adult health examination with abnormal findings Z00.01 ; Morbid (severe) obesity due to excess calories E66.01 ; Family history of heart disease Z82.49 ; Tobacco abuse Z72.0 ; Major depressive disorder, single episode, unspecified F32.9 ; Tobacco abuse counseling Z71.6 and 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 [place] [address] Sep, Encounter for routine adult health examination with [...] SOCIAL HISTORY Never Assessed REASON FOR VISIT Suicidal Patient PLAN OF CARE VITAL SIGNS MEDICATIONS Unknown Medications RESULTS No Results PROCEDURES No Known procedures INSTRUCTIONS MEDICATIONS ADMINISTERED No Known Medications MEDICAL (GENERAL) HISTORY Type Description Date Medical History supraventricular tachycardia Medical History deep vein thrombosis Medical History depression Surgical History loop recorder removed in 2008- placed at [facility] in [place] Surgical History vein stripping-Dr. Lau Surgical History total tooth extraction Hospitalization History SVT
--- OUTSIDE RECORDS SUMMARY | 2019-01-05 13:21 | XMS REPORT ---
Author Author RADHA NAVARRO [facility] Address [address] [place] [address] Care Team Providers Care Pegger Name Role Phone RADHA NAVARRO Unavailable PROBLEMS Type Condition ICD9-CM Code PAM16-XZ Code Onset Dates Condition Status SNOMED Code Problem Tobacco abuse Z72.0 Active 906956719 Problem 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 Active 36706276 Problem Tobacco abuse counseling Z71.6 Active 099775061 Problem Current moderate episode of major depressive disorder without prior episode F32.1 Active 10681957 Problem Non-adherence to medical treatment Z91.19 Active 864285669 Problem Chronic fatigue R53.82 Active 94057839 Problem Essential hypertension I10 Active 31122202 Problem Nonadherence with dietary restriction Z91.11 Active 515936521 Problem Body mass index (BMI) of 45.0-49.9 in adult Z68.42 Active 223358576 Problem Type 2 diabetes mellitus without complication, without long-term current use of insulin E11.9 Active 396796285 Problem Low serum testosterone level E29.1 Active 947230984 Problem Elevated LDL cholesterol level E78.00 Active 252300239 Problem Hyperinsulinemia E16.1 Active 85279493 Problem Night terrors, adult F51.4 Active 78113422 ALLERGIES Substance Reaction Event Type Date Status Percocet nausea and vomiting Drug Allergy October, Active ENCOUNTERS Encounter Location Date Diagnosis [facility] [address] [facility] [id number] [address] Jan, [facility] [address], [place] [address] October, [facility] [address], [place] [address] October, [facility] [address], [place] [address] October, Acute deep vein thrombosis (DVT) of [...] Z91.19 and Right upper quadrant pain R10.11 [place] [id number] [place] [address] October, Influenza-like symptoms R68.89 [place] [address] [id number] 08 Aug, 2017 Influenza-like symptoms R68.89 and Body aches R52 [place] [address] [address] Aug, Low serum testosterone level E29.1 [place] [address] [address] Aug, Chronic fatigue R53.82 [place] [address] [id number] Aug, [place] [id number] [place] [address] Jul, [place] [address] [address] Jul, Hyperinsulinemia E16.1 ; 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 ; Tobacco abuse Z72.0 ; Body mass index (BMI) of 45.0-49.9 in adult Z68.42 ; Morbid (severe) obesity due to excess calories E66.01 ; Low serum testosterone level E29.1 ; Essential hypertension I10 ; Nonadherence to medical treatment Z91.19 and Nonadherence with dietary restriction Z91.11 [place] [id number] [place] [address] Jul, [address] [place] [address] May, [place] [id number] [place] [address] Nov, Low serum testosterone level E29.1 and Chronic fatigue R53.82 [address] [id number] [place] [address] Nov, Hyperinsulinemia E16.1 ; Tobacco abuse Z72.0 ; Morbid (severe) obesity due to excess calories E66.01 ; Elevated blood pressure reading in office without diagnosis of hypertension R03.0 ; Chronic fatigue R53.82 and Night terrors, adult F51.4 [place] [id number] [place] [address] October, Low serum testosterone level E29.1 [place] [id number] [place] [address] 03 Oct, 2016 Encounter for routine adult health examination with abnormal findings Z00.01 ; Morbid (severe) obesity due to excess calories E66.01 ; Family history of heart disease Z82.49 ; Tobacco abuse Z72.0 ; Major depressive disorder, single episode, unspecified F32.9 ; Tobacco abuse counseling Z71.6 and 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 [address] [place] [address] 18 Sep, 2016 Encounter for routine adult [...] SOCIAL HISTORY Never Assessed REASON FOR VISIT ER f/u (VC) DVT- KIMI art PLAN OF CARE Activity Details Follow Up 3 Months, prn Reason:CHM/DM Pending Test THYROID ANALYZER VITAL SIGNS Height 70 in 2017-11-05 Weight 318 lbs 2017-11-05 Temperature 97.5 degrees Fahrenheit 2017-11-05 Heart Rate 87 bpm 2017-11-05 Respiratory Rate 20 2017-11-05 BMI 45.62 kg/m2 2017-11-05 Blood pressure systolic 135 mmHg 2017-11-05 Blood pressure diastolic 82 mmHg 2017-11-05 MEDICATIONS Medication Instructions Dosage Frequency Start Date End Date Duration Status Eliquis 5 mg Orally 2 times a day 1 tablet 12October, 90 days Active MetFORMIN HCl ER 500 mg Orally Once a day 1 tablet with evening meal for one week and then bid 24h Aug, 90 days Active Atorvastatin Calcium 20 mg Orally Once a day 1 tablet 24h October, 90 days Active Jardiance 10 mg Orally Once a day 1 tablet 24h October, Jan, 90 days Active Varenicline Tartrate 1 MG Orally Twice a day 1/2 tab daily day 1-3, then 1/2 tab bid day4-6 then 1 tab twice daily October, Dec, 30 day(s) Active Sertraline HCl 50 mg Orally Once a day 1 tablet 24h October, 90 days Active Eliquis 5 MG Orally 2 times a day as directed October, 30 days Active RESULTS Name Result Date Reference Range A1C (IN HOUSE) 2017-11-05 A1C IN HOUSE 8.4 4.3 - 5.6 % Previous A1c 6.9 Lot [id number] Exp date 2019 Ultrasound : Abdominal, COMPLETE 2017-11-09 PROCEDURES Procedure Date Ordered Result Body Site GLYCATED HEMOGLOBIN TEST November 05, 2017 [facility], 2017 INSTRUCTIONS MEDICATIONS ADMINISTERED No Known Medications MEDICAL (GENERAL) HISTORY Type Description Date Medical History supraventricular tachycardia Medical History deep vein thrombosis Medical History depression Surgical History loop recorder removed in 2008- placed at [facility] in [place] Surgical History vein stripping-Dr. Lau Surgical History total tooth extraction Hospitalization History SVT
--- OUTSIDE RECORDS SUMMARY | 2019-01-05 13:21 | XMS REPORT ---
Author Author RADHA NAVARRO [facility] Address [address] [place] [address] Care Team Providers Care Marzipan Maker Name Role Phone RADHA NAVARRO Unavailable PROBLEMS Type Condition ICD9-CM Code LKX03-NI Code Onset Dates Condition Status SNOMED Code Problem Tobacco abuse Z72.0 Active 897008557 Problem 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 Active 79857317 Problem Tobacco abuse counseling Z71.6 Active 015824942 Problem Current moderate episode of major depressive disorder without prior episode F32.1 Active 61380432 Problem Non-adherence to medical treatment Z91.19 Active 472580216 Problem Chronic fatigue R53.82 Active 35172792 Problem Essential hypertension I10 Active 03378666 Problem Nonadherence with dietary restriction Z91.11 Active 078042916 Problem Body mass index (BMI) of 45.0-49.9 in adult Z68.42 Active 190395073 Problem Type 2 diabetes mellitus without complication, without long-term current use of insulin E11.9 Active 940648101 Problem Low serum testosterone level E29.1 Active 713993333 Problem Elevated LDL cholesterol level E78.00 Active 959420358 Problem Hyperinsulinemia E16.1 Active 47233836 Problem Night terrors, adult F51.4 Active 75425126 ALLERGIES Substance Reaction Event Type Date Status Percocet nausea and vomiting Drug Allergy Jul, Active ENCOUNTERS Encounter Location Date Diagnosis [facility] [address] [facility] [id number], [place] [address] October, [facility] [address], [place] [address] October, [facility] [address] [facility] [id number], [place] [address] October, Acute deep vein thrombosis (DVT) of [...] Z91.19 and Right upper quadrant pain R10.11 [place] [id number] [place] [address] October, Influenza-like symptoms R68.89 [place] [id number] [place] [address] Aug, Influenza-like symptoms R68.89 and Body aches R52 [place] [id number] [place] [address] Aug, Low serum testosterone level E29.1 [place] [id number] [place] [address] Aug, Chronic fatigue R53.82 [place] [id number] [place] [address] Aug, [place] [id number] [place] [address] Jul, [place] [id number] [place] [address] Jul, Hyperinsulinemia E16.1 ; 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 ; Tobacco abuse Z72.0 ; Body mass index (BMI) of 45.0-49.9 in adult Z68.42 ; Morbid (severe) obesity due to excess calories E66.01 ; Low serum testosterone level E29.1 ; Essential hypertension I10 ; Nonadherence to medical treatment Z91.19 and Nonadherence with dietary restriction Z91.11 [place] [id number] [place] [address] Jul, [place] [id number] [place] [address] May, [place] [address], [place] [address] Nov, Low serum testosterone level E29.1 and Chronic fatigue R53.82 [place] [address], [place] [address] 15 Nov, 2016 Hyperinsulinemia E16.1 ; Tobacco abuse Z72.0 ; Morbid (severe) obesity due to excess calories E66.01 ; Elevated blood pressure reading in office without diagnosis of hypertension R03.0 ; Chronic fatigue R53.82 and Night terrors, adult F51.4 [place] [id number] [place] [address] 30 Oct, 2016 Low serum testosterone level E29.1 [place] [address], [place] [address] 03 Oct, 2016 Encounter for routine adult health examination with abnormal findings Z00.01 ; Morbid (severe) obesity due to excess calories E66.01 ; Family history of heart disease Z82.49 ; Tobacco abuse Z72.0 ; Major depressive disorder, single episode, unspecified F32.9 ; Tobacco abuse counseling Z71.6 and 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 [place] [address], [place] [address] 18 Sep, 2016 Encounter for routine adult [...] SOCIAL HISTORY Never Assessed REASON FOR VISIT Lumps in Veins--tcuppettRn, --Lumps in veins in bilateral lower extremities sin ce last week. Having pain, -- Reports vision loss intermittently recently PLAN OF CARE Activity Details Follow Up 3 Months Reason:CHM/Hyperinsulinemia VITAL SIGNS Height 70 in 2017-07-16 Weight 323.9 lbs 2017-07-16 Temperature 98.2 degrees Fahrenheit 2017-07-16 Heart Rate 88 bpm 2017-07-16 Respiratory Rate 20 2017-07-16 BMI 46.47 kg/m2 2017-07-16 Blood pressure systolic 128 mmHg 2017-07-16 Blood pressure diastolic 88 mmHg 2017-07-16 MEDICATIONS Medication Instructions Dosage Frequency Start Date End Date Duration Status Eliquis 2.5 MG Orally 2 times a day 1 tablet 12h 11 Jul, 2017 30 days Not-Taking RESULTS No Results PROCEDURES Procedure Date Ordered Result Body Site ASSAY OF INSULIN Jul 16, 2017 COMPLETE CBC W/AUTO DIFF WBC Jul 16, 2017 VENIPUNCT, ROUTINE* Jul 16, 2017 Hemoglobin Test Send Out 0 dollar Jul 16, 2017 ASSAY THYROID STIM HORMONE Jul 16, 2017 COMPREHEN METABOLIC PANEL Jul 16, 2017 ASSAY OF TOTAL TESTOSTERONE Jul 16, 2017 LIPID PANEL Jul 16, 2017 INSTRUCTIONS MEDICATIONS ADMINISTERED No Known Medications MEDICAL (GENERAL) HISTORY Type Description Date Medical History supraventricular tachycardia Medical History deep vein thrombosis Medical History depression Surgical History loop recorder removed in 2008- placed at [facility] in [place] Surgical History vein stripping-Dr. Lau Surgical History total tooth extraction Hospitalization History SVT
--- OUTSIDE RECORDS SUMMARY | 2019-01-05 13:21 | XMS REPORT ---
Author Author AMAOD RASMUSSEN [facility] Address [address] [place] [address] Care Team Providers Care Management Consulting Name Role Phone RASMUSSENAMADO Unavailable PROBLEMS Type Condition ICD9-CM Code YBS96-GK Code Onset Dates Condition Status SNOMED Code Problem Tobacco abuse Z72.0 Active 972061512 Problem 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 Active 22866958 Problem Tobacco abuse counseling Z71.6 Active 962978832 Problem Current moderate episode of major depressive disorder without prior episode F32.1 Active 07102656 Problem Non-adherence to medical treatment Z91.19 Active 978346024 Problem Chronic fatigue R53.82 Active 29066732 Problem Essential hypertension I10 Active 57885962 Problem Nonadherence with dietary restriction Z91.11 Active 348925797 Problem Body mass index (BMI) of 45.0-49.9 in adult Z68.42 Active 930358434 Problem Type 2 diabetes mellitus without complication, without long-term current use of insulin E11.9 Active 148147776 Problem Low serum testosterone level E29.1 Active 024831135 Problem Elevated LDL cholesterol level E78.00 Active 972764092 Problem Hyperinsulinemia E16.1 Active 40604460 Problem Night terrors, adult F51.4 Active 28301933 ALLERGIES No Information ENCOUNTERS Encounter Location Date Diagnosis [facility] [address] [address] Apr, [facility] [id number] [place] [address] Apr, Acute deep vein thrombosis (DVT) of femoral vein of right lower extremity I82.411 [facility] [address] [address] October, [facility] [id number] [place] [address] October, [place] [id number] [place] [address] October, Acute deep vein thrombosis (DVT) of [...] Z91.19 and Right upper quadrant pain R10.11 [place] [address] [address] October, Influenza-like symptoms R68.89 [place] [id number] [place] [address] 08 Aug, 2017 Influenza-like symptoms R68.89 and Body aches R52 [place] [id number] [place] [address] 02 Aug, 2017 Low serum testosterone level E29.1 [place] [id number] [place] [address] 02 Aug, 2017 Chronic fatigue R53.82 [place] [address] [place] [address] Aug, [place] [id number] [place] [address] Jul, [place] [id number] [place] [address] Jul, Hyperinsulinemia E16.1 ; 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 ; Tobacco abuse Z72.0 ; Body mass index (BMI) of 45.0-49.9 in adult Z68.42 ; Morbid (severe) obesity due to excess calories E66.01 ; Low serum testosterone level E29.1 ; Essential hypertension I10 ; Nonadherence to medical treatment Z91.19 and Nonadherence with dietary restriction Z91.11 [place] [address] [address] Jul, [address] [place] [address] May, [place] [id number] [place] [address] Nov, Low serum testosterone level E29.1 and Chronic fatigue R53.82 [address] [place] [address] 15 Nov, 2016 Hyperinsulinemia E16.1 ; Tobacco abuse Z72.0 ; Morbid (severe) obesity due to excess calories E66.01 ; Elevated blood pressure reading in office without diagnosis of hypertension R03.0 ; Chronic fatigue R53.82 and Night terrors, adult F51.4 [place] [id number] [place] [address] October, Low serum testosterone level E29.1 [place] [address] [place] [address] October, Encounter for routine adult health examination with abnormal findings Z00.01 ; Morbid (severe) obesity due to excess calories E66.01 ; Family history of heart disease Z82.49 ; Tobacco abuse Z72.0 ; Major depressive disorder, single episode, unspecified F32.9 ; Tobacco abuse counseling Z71.6 and 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 [address] [address] 18 Sep, 2016 Encounter for routine adult [...] SOCIAL HISTORY Never Assessed REASON FOR VISIT Repository PLAN OF CARE VITAL SIGNS MEDICATIONS Medication Instructions Dosage Frequency Start Date End Date Duration Status Eliquis 5 mg Orally 2 times a day 1 tablet 12h 07 Oct, 2017 30 days Active RESULTS No Results PROCEDURES No Known procedures INSTRUCTIONS MEDICATIONS ADMINISTERED No Known Medications MEDICAL (GENERAL) HISTORY Type Description Date Medical History supraventricular tachycardia Medical History deep vein thrombosis Medical History depression Surgical History loop recorder removed in 2008- placed at [facility] in [place] Surgical History vein stripping-Dr. Lau Surgical History total tooth extraction Hospitalization History SVT
--- OUTSIDE RECORDS SUMMARY | 2019-01-05 13:21 | XMS REPORT ---
Author Author RADHA NAVARRO Organization [facility] Address [address] [place] [address] Care Team Providers Care Drying Oven Attendant Name Role Phone RADHA NAVARRO Unavailable PROBLEMS Type Condition ICD9-CM Code [id number] Code Onset Dates Condition Status SNOMED Code Problem Tobacco abuse Z72.0 Active 357904395 Problem 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 Active 50490348 Problem Tobacco abuse counseling Z71.6 Active 719693713 Problem Current moderate episode of major depressive disorder without prior episode F32.1 Active 82010583 Problem Non-adherence to medical treatment Z91.19 Active 451484674 Problem Chronic fatigue R53.82 Active 69852012 Problem Essential hypertension I10 Active 00457910 Problem Nonadherence with dietary restriction Z91.11 Active 515077879 Problem Body mass index (BMI) of 45.0-49.9 in adult Z68.42 Active 168767329 Problem Type 2 diabetes mellitus without complication, without long-term current use of insulin E11.9 Active 522020913 Problem Low serum testosterone level E29.1 Active 892351664 Problem Elevated LDL cholesterol level E78.00 Active 552971137 Problem Hyperinsulinemia E16.1 Active 29312247 Problem Night terrors, adult F51.4 Active 62769104 ALLERGIES No Information ENCOUNTERS Encounter Location Date Diagnosis [facility] [address] [facility] [id number] [address] Jan, [facility] [id number], [place] [address] October, [facility] [address], [place] [address] October, [facility] [id number] [address] October, Acute deep vein thrombosis (DVT) of [...] Z91.19 and Right upper quadrant pain R10.11 [place] [id number] [place] [address] 05 Oct, 2017 Influenza-like symptoms R68.89 [place] [address] [address] 08 Aug, 2017 Influenza-like symptoms R68.89 and Body aches R52 [place] [id number] [place] [address] 02 Aug, 2017 Low serum testosterone level E29.1 [place] [id number] [place] [address] 02 Aug, 2017 Chronic fatigue R53.82 [place] [address] [address] 02 Aug, 2017 [place] [id number] [place] [address] Jul, [place] [id number] [place] [address] 15 Jul, 2017 Hyperinsulinemia E16.1 ; 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 ; Tobacco abuse Z72.0 ; Body mass index (BMI) of 45.0-49.9 in adult Z68.42 ; Morbid (severe) obesity due to excess calories E66.01 ; Low serum testosterone level E29.1 ; Essential hypertension I10 ; Nonadherence to medical treatment Z91.19 and Nonadherence with dietary restriction Z91.11 [place] [id number] [place] [address] Jul, [address], [place] [address] May, [place] [address] [place] [address] Nov, Low serum testosterone level E29.1 and Chronic fatigue R53.82 [place] [address] [place] [address] Nov, Hyperinsulinemia E16.1 ; Tobacco abuse Z72.0 ; Morbid (severe) obesity due to excess calories E66.01 ; Elevated blood pressure reading in office without diagnosis of hypertension R03.0 ; Chronic fatigue R53.82 and Night terrors, adult F51.4 [place] [address] [place] [address] 30 Oct, 2016 Low serum testosterone level E29.1 [place] [address] [place] [address] October, Encounter for routine adult health examination with abnormal findings Z00.01 ; Morbid (severe) obesity due to excess calories E66.01 ; Family history of heart disease Z82.49 ; Tobacco abuse Z72.0 ; Major depressive disorder, single episode, unspecified F32.9 ; Tobacco abuse counseling Z71.6 and 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 [address] [place] [address] Sep, Encounter for routine adult health examination [...] SOCIAL HISTORY Never Assessed REASON FOR VISIT Follow up PLAN OF CARE VITAL SIGNS MEDICATIONS Unknown Medications RESULTS No Results PROCEDURES No Known procedures INSTRUCTIONS MEDICATIONS ADMINISTERED No Known Medications MEDICAL (GENERAL) HISTORY Type Description Date Medical History supraventricular tachycardia Medical History deep vein thrombosis Medical History depression Surgical History loop recorder removed in 2008- placed at [facility] in [place] Surgical History vein stripping-Dr. Lau Surgical History total tooth extraction Hospitalization History SVT
--- OUTSIDE RECORDS SUMMARY | 2019-01-05 13:21 | XMS REPORT ---
Author Author TR SAMUEL Organization [facility] Address [address] [place] [address] Care Team Providers Care Local Government Legislator Name Role Phone JIMMIE TR Unavailable PROBLEMS Type Condition ICD9-CM Code [id number] Code Onset Dates Condition Status SNOMED Code Problem Tobacco abuse Z72.0 Active 096527665 Problem 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 Active 16647413 Problem Tobacco abuse counseling Z71.6 Active 771061275 Problem Current moderate episode of major depressive disorder without prior episode F32.1 Active 55256727 Problem Non-adherence to medical treatment Z91.19 Active 383773137 Problem Chronic fatigue R53.82 Active 18933784 Problem Essential hypertension I10 Active 54469239 Problem Nonadherence with dietary restriction Z91.11 Active 925310578 Problem Body mass index (BMI) of 45.0-49.9 in adult Z68.42 Active 619404866 Problem Type 2 diabetes mellitus without complication, without long-term current use of insulin E11.9 Active 706469176 Problem Low serum testosterone level E29.1 Active 926331502 Problem Elevated LDL cholesterol level E78.00 Active 533408961 Problem Hyperinsulinemia E16.1 Active 48704936 Problem Night terrors, adult F51.4 Active 76739397 ALLERGIES No Information ENCOUNTERS Encounter Location Date Diagnosis [facility] [address] [facility] [id number] [address] October, [facility] [address] [address] October, [facility] [id number] [address] October, Acute deep vein thrombosis (DVT) of [...] Z91.19 and Right upper quadrant pain R10.11 [place] [id number] [place] [address] October, Influenza-like symptoms R68.89 [place] [address] [address] 08 Aug, 2017 Influenza-like symptoms R68.89 and Body aches R52 [address] [address] Aug, Low serum testosterone level E29.[address] [address] Aug, Chronic fatigue R53.[address] [address] Aug, [place] [address] [address] Jul, [place] [id number] [place] [address] Jul, Hyperinsulinemia E16.1 ; 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 ; Tobacco abuse Z72.0 ; Body mass index (BMI) of 45.0-49.9 in adult Z68.42 ; Morbid (severe) obesity due to excess calories E66.01 ; Low serum testosterone level E29.1 ; Essential hypertension I10 ; Nonadherence to medical treatment Z91.19 and Nonadherence with dietary restriction Z91.11 [place] [id number] [place] [address] Jul, [address] [address] May, [place] [id number] [address] Nov, Low serum testosterone level E29.1 and Chronic fatigue R53.82 [place] [address] [address] Nov, Hyperinsulinemia E16.1 ; Tobacco abuse Z72.0 ; Morbid (severe) obesity due to excess calories E66.01 ; Elevated blood pressure reading in office without diagnosis of hypertension R03.0 ; Chronic fatigue R53.82 and Night terrors, adult F51.4 [place] [address] [address] October, Low serum testosterone level E29.1 [place] [address] [address] October, Encounter for routine adult health examination with abnormal findings Z00.01 ; Morbid (severe) obesity due to excess calories E66.01 ; Family history of heart disease Z82.49 ; Tobacco abuse Z72.0 ; Major depressive disorder, single episode, unspecified F32.9 ; Tobacco abuse counseling Z71.6 and 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 [place] [address] [address] 18 Sep, 2016 Encounter for routine adult [...] SOCIAL HISTORY Never Assessed REASON FOR VISIT lumps in veins PLAN OF CARE VITAL SIGNS MEDICATIONS Medication Instructions Dosage Frequency Start Date End Date Duration Status Eliquis 2.5 MG Orally 2 times a day 1 tablet 12h Jul, 30 days Active RESULTS No Results PROCEDURES No Known procedures INSTRUCTIONS MEDICATIONS ADMINISTERED No Known Medications MEDICAL (GENERAL) HISTORY Type Description Date Medical History supraventricular tachycardia Medical History deep vein thrombosis Medical History depression Surgical History loop recorder removed in 2008- placed at [facility] in [place] Surgical History vein stripping-Dr. Lau Surgical History total tooth extraction Hospitalization History SVT
--- OUTSIDE RECORDS SUMMARY | 2019-01-05 13:21 | XMS REPORT ---
Author Author AMADO RASMUSSEN [facility] Address [address] [place] [address] Care Team Providers Care Energy Management Specialist Name Role Phone RASMUSSENAMADO Unavailable PROBLEMS Type Condition ICD9-CM Code [id number] Code Onset Dates Condition Status SNOMED Code Problem Tobacco abuse Z72.0 Active 011168753 Problem 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 Active 32430089 Problem Tobacco abuse counseling Z71.6 Active 425785126 Problem Current moderate episode of major depressive disorder without prior episode F32.1 Active 26523778 Problem Non-adherence to medical treatment Z91.19 Active 845511297 Problem Chronic fatigue R53.82 Active 35392586 Problem Essential hypertension I10 Active 91318292 Problem Nonadherence with dietary restriction Z91.11 Active 036974066 Problem Body mass index (BMI) of 45.0-49.9 in adult Z68.42 Active 410904837 Problem Type 2 diabetes mellitus without complication, without long-term current use of insulin E11.9 Active 178511073 Problem Low serum testosterone level E29.1 Active 942774431 Problem Elevated LDL cholesterol level E78.00 Active 181119385 Problem Hyperinsulinemia E16.1 Active 06985928 Problem Night terrors, adult F51.4 Active 17598795 ALLERGIES No Information ENCOUNTERS Encounter Location Date Diagnosis [facility] [address] [facility] [id number] [address] Jan, [facility] [id number], [place] [address] October, [facility] [address], [place] [address] October, [facility] [id number], [place] [address] October, Acute deep vein thrombosis (DVT) of [...] Z91.19 and Right upper quadrant pain R10.11 [place] [address] [address] October, Influenza-like symptoms R68.89 [place] [address] [address] 08 Aug, 2017 Influenza-like symptoms R68.89 and Body aches R52 [place] [address] [address] Aug, Low serum testosterone level E29.1 [place] [address] [id number] [place] [address] 02 Aug, 2017 Chronic fatigue R53.82 [place] [address] [address] 02 Aug, 2017 [place] [address] [address] [id number] [place] [address] Jul, [place] [address] [address] Jul, Hyperinsulinemia E16.1 ; 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 ; Tobacco abuse Z72.0 ; Body mass index (BMI) of 45.0-49.9 in adult Z68.42 ; Morbid (severe) obesity due to excess calories E66.01 ; Low serum testosterone level E29.1 ; Essential hypertension I10 ; Nonadherence to medical treatment Z91.19 and Nonadherence with dietary restriction Z91.11 [place] [address] [id number] [place] [address] Jul, [place] [address], [place] [address] May, [place] [id number] [place] [address] Nov, Low serum testosterone level E29.1 and Chronic fatigue R53.82 [place] [id number] [place] [address] Nov, Hyperinsulinemia E16.1 ; Tobacco abuse Z72.0 ; Morbid (severe) obesity due to excess calories E66.01 ; Elevated blood pressure reading in office without diagnosis of hypertension R03.0 ; Chronic fatigue R53.82 and Night terrors, adult F51.4 [place] [id number] [place] [address] 30 Oct, 2016 Low serum testosterone level E29.[address] [place] [address] October, Encounter for routine adult health examination with abnormal findings Z00.01 ; Morbid (severe) obesity due to excess calories E66.01 ; Family history of heart disease Z82.49 ; Tobacco abuse Z72.0 ; Major depressive disorder, single episode, unspecified F32.9 ; Tobacco abuse counseling Z71.6 and 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 [place] [address] Sep, Encounter for routine adult health examination [...] HISTORY Never Assessed REASON FOR VISIT ER Visit - DVT PLAN OF CARE VITAL SIGNS MEDICATIONS Medication Instructions Dosage Frequency Start Date End Date Duration Status Eliquis 5 MG Orally 2 times a day as directed 12h October, 30 days Active MetFORMIN HCl ER 500 mg Orally as directed 1 tablet with evening meal for one week and then bid Aug, 30 day(s) Not-Taking Testosterone Cypionate 100 MG/ML Intramuscular once monthly 1 ml Aug, 30 days Unknown Atorvastatin Calcium 10 mg Orally Once a day 1 tablet 24h Aug, 90 days Unknown RESULTS No Results PROCEDURES No Known procedures INSTRUCTIONS MEDICATIONS ADMINISTERED No Known Medications MEDICAL (GENERAL) HISTORY Type Description Date Medical History supraventricular tachycardia Medical History deep vein thrombosis Medical History depression Surgical History loop recorder removed in 2008- placed at [facility] in [place] Surgical History vein stripping-Dr. Lau Surgical History total tooth extraction Hospitalization History SVT
--- OUTSIDE RECORDS SUMMARY | 2019-01-05 13:22 | XMS REPORT ---
Author Author RADHA NAVARRO Organization [facility] Address [address] [place] [address] Care Team Providers Care Chemist Internship Name Role Phone RADHA NAVARRO Unavailable PROBLEMS Type Condition ICD9-CM Code [id number] Code Onset Dates Condition Status SNOMED Code Problem Tobacco abuse Z72.0 Active 218508831 Problem 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 Active 92287527 Problem Tobacco abuse counseling Z71.6 Active 428403824 Problem Current moderate episode of major depressive disorder without prior episode F32.1 Active 64720878 Problem Non-adherence to medical treatment Z91.19 Active 402696648 Problem Chronic fatigue R53.82 Active 38046538 Problem Essential hypertension I10 Active 06285207 Problem Nonadherence with dietary restriction Z91.11 Active 898160382 Problem Body mass index (BMI) of 45.0-49.9 in adult Z68.42 Active 794768941 Problem Type 2 diabetes mellitus without complication, without long-term current use of insulin E11.9 Active 707156844 Problem Low serum testosterone level E29.1 Active 266775055 Problem Elevated LDL cholesterol level E78.00 Active 945349506 Problem Hyperinsulinemia E16.1 Active 57060701 Problem Night terrors, adult F51.4 Active 95366621 ALLERGIES No Information ENCOUNTERS Encounter Location Date Diagnosis [facility] [id number], [place] [address] October, [facility] [address], [place] [address] October, [facility] [id number], [place] [address] October, Acute deep vein thrombosis (DVT) of [...] Z91.19 and Right upper quadrant pain R10.11 [place] [id number] [place] [address] October, Influenza-like symptoms R68.89 [place] [id number] [place] [address] Aug, Influenza-like symptoms R68.89 and Body aches R52 [address] [address] Aug, Low serum testosterone level E29.1 [place] [id number] [place] [address] Aug, Chronic fatigue R53.82 [place] [id number] [place] [address] Aug, [place] [id number] [place] [address] Jul, [place] [id number] [place] [address] Jul, Hyperinsulinemia E16.1 ; 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 ; Tobacco abuse Z72.0 ; Body mass index (BMI) of 45.0-49.9 in adult Z68.42 ; Morbid (severe) obesity due to excess calories E66.01 ; Low serum testosterone level E29.1 ; Essential hypertension I10 ; Nonadherence to medical treatment Z91.19 and Nonadherence with dietary restriction Z91.11 [place] [id number] [place] [address] Jul, [place] [id number] [place] [address] May, [address], [place] [address] Nov, Low serum testosterone level E29.1 and Chronic fatigue R53.[address] [place] [address] Nov, Hyperinsulinemia E16.1 ; Tobacco abuse Z72.0 ; Morbid (severe) obesity due to excess calories E66.01 ; Elevated blood pressure reading in office without diagnosis of hypertension R03.0 ; Chronic fatigue R53.82 and Night terrors, adult F51.[address] [place] [address] October, Low serum testosterone level E29.1 [address] [place] [address] October, Encounter for routine adult health examination with abnormal findings Z00.01 ; Morbid (severe) obesity due to excess calories E66.01 ; Family history of heart disease Z82.49 ; Tobacco abuse Z72.0 ; Major depressive disorder, single episode, unspecified F32.9 ; Tobacco abuse counseling Z71.6 and 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 [address] [place] [address] Sep, Encounter for routine adult health examination [...] SOCIAL HISTORY Never Assessed REASON FOR VISIT PLAN OF CARE VITAL SIGNS MEDICATIONS Medication Instructions Dosage Frequency Start Date End Date Duration Status Diazepam 5 mg Orally Twice a day 1 tablet 30 minutes before takeoff and may repeat x 1 if needed. 12May, 2 days Active RESULTS No Results PROCEDURES No Known procedures INSTRUCTIONS MEDICATIONS ADMINISTERED No Known Medications MEDICAL (GENERAL) HISTORY Type Description Date Medical History supraventricular tachycardia Medical History deep vein thrombosis Medical History depression Surgical History loop recorder removed in 2008- placed at [facility] in [place] Surgical History vein stripping-Dr. Lau Surgical History total tooth extraction Hospitalization History SVT
--- OUTSIDE RECORDS SUMMARY | 2019-01-05 13:22 | XMS REPORT ---
Author Author RADHA NAVARRO Organization [facility] Address [address] [place] [address] Care Team Providers Care Game Engineer Name Role Phone RADHA NAVARRO Unavailable PROBLEMS Type Condition ICD9-CM Code [id number] Code Onset Dates Condition Status SNOMED Code Problem Tobacco abuse Z72.0 Active 708880951 Problem 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 Active 01003015 Problem Tobacco abuse counseling Z71.6 Active 996166728 Problem Current moderate episode of major depressive disorder without prior episode F32.1 Active 80546414 Problem Non-adherence to medical treatment Z91.19 Active 969999928 Problem Chronic fatigue R53.82 Active 63416985 Problem Essential hypertension I10 Active 25143134 Problem Nonadherence with dietary restriction Z91.11 Active 625653436 Problem Body mass index (BMI) of 45.0-49.9 in adult Z68.42 Active 419249042 Problem Type 2 diabetes mellitus without complication, without long-term current use of insulin E11.9 Active 318338710 Problem Low serum testosterone level E29.1 Active 919652383 Problem Elevated LDL cholesterol level E78.00 Active 718525624 Problem Hyperinsulinemia E16.1 Active 69817748 Problem Night terrors, adult F51.4 Active 96603893 ALLERGIES Substance Reaction Event Type Date Status Percocet nausea and vomiting Drug Allergy Aug, Active ENCOUNTERS Encounter Location Date Diagnosis [facility] [address] [facility] [id number] [address] October, [facility] [address] [address] October, [facility] [id number] [address] October, Acute deep vein thrombosis (DVT) of [...] Z91.19 and Right upper quadrant pain R10.11 [place] [address] [address] October, Influenza-like symptoms R68.89 [place] [id number] [place] [address] Aug, Influenza-like symptoms R68.89 and Body aches R52 [address] [id number] [place] [address] Aug, Low serum testosterone level E29.1 [place] [address] [address] Aug, Chronic fatigue R53.82 [place] [id number] [place] [address] Aug, [place] [id number] [place] [address] Jul, [place] [id number] [place] [address] Jul, Hyperinsulinemia E16.1 ; 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 ; Tobacco abuse Z72.0 ; Body mass index (BMI) of 45.0-49.9 in adult Z68.42 ; Morbid (severe) obesity due to excess calories E66.01 ; Low serum testosterone level E29.1 ; Essential hypertension I10 ; Nonadherence to medical treatment Z91.19 and Nonadherence with dietary restriction Z91.11 [place] [id number] [place] [address] Jul, [place] [id number] [place] [address] May, [place] [id number] [place] [address] Nov, Low serum testosterone level E29.1 and Chronic fatigue R53.82 [place] [address], [place] [address] Nov, Hyperinsulinemia E16.1 ; Tobacco abuse Z72.0 ; Morbid (severe) obesity due to excess calories E66.01 ; Elevated blood pressure reading in office without diagnosis of hypertension R03.0 ; Chronic fatigue R53.82 and Night terrors, adult F51.4 [place] [id number] [place] [address] 30 Oct, 2016 Low serum testosterone level E29.1 [place] [address], [place] [address] October, Encounter for routine adult health examination with abnormal findings Z00.01 ; Morbid (severe) obesity due to excess calories E66.01 ; Family history of heart disease Z82.49 ; Tobacco abuse Z72.0 ; Major depressive disorder, single episode, unspecified F32.9 ; Tobacco abuse counseling Z71.6 and 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 [place] [id number] [address] 18 Sep, 2016 Encounter for routine adult [...] SOCIAL HISTORY Never Assessed REASON FOR VISIT Cold symptoms- sore throat, cough, congestion, shortness of breath x 3 days--tcu ppettRN PLAN OF CARE Activity Details Follow Up prn Reason: VITAL SIGNS Height 70 in 2017-08-09 Weight 318 lbs 2017-08-09 Temperature 98.4 degrees Fahrenheit 2017-08-09 Heart Rate 80 bpm 2017-08-09 Respiratory Rate 20 2017-08-09 Oximetry 95 % 2017-08-09 BMI 45.62 kg/m2 2017-08-09 Blood pressure systolic 128 mmHg 2017-08-09 Blood pressure diastolic 84 mmHg 2017-08-09 MEDICATIONS Medication Instructions Dosage Frequency Start Date End Date Duration Status MetFORMIN HCl ER 500 mg Orally as directed 1 tablet with evening meal for one week and then bid Aug, 30 day(s) Active Eliquis 2.5 MG Orally 2 times a day 1 tablet 12h Jul, 30 days Active Oseltamivir Phosphate 75 MG Orally Twice a day 1 capsule 12h Aug, 5 day(s) Active Atorvastatin Calcium 10 mg Orally Once a day 1 tablet 24h Aug, 90 days Active Testosterone Cypionate 100 MG/ML Intramuscular once monthly 1 ml Aug, 30 days Active RESULTS Name Result Date Reference Range INFLUENZA A & B (IN HOUSE) 2017-08-09 INFLUENZA A Negative INFLUENZA B Negative Control + Lot # [id number] Exp date 11/13/19 PROCEDURES Procedure Date Ordered Result Body Site MEASURE BLOOD OXYGEN LEVEL Aug 09, 2017 INFLUENZA ASSAY W/OPTIC Aug 09, 2017 INSTRUCTIONS MEDICATIONS ADMINISTERED No Known Medications MEDICAL (GENERAL) HISTORY Type Description Date Medical History supraventricular tachycardia Medical History deep vein thrombosis Medical History depression Surgical History loop recorder removed in 2008- placed at [facility] in [place] Surgical History vein stripping-Dr. Lau Surgical History total tooth extraction Hospitalization History SVT
--- OUTSIDE RECORDS SUMMARY | 2019-01-05 13:22 | XMS REPORT ---
Author Author RADHA NAVARRO Organization [facility] Address [address] [place] [address] Care Team Providers Care Flat Bed Knitter Name Role Phone RADHA NAVARRO Unavailable PROBLEMS Type Condition ICD9-CM Code [id number] Code Onset Dates Condition Status SNOMED Code Problem Tobacco abuse Z72.0 Active 765387498 Problem 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 Active 20268542 Problem Tobacco abuse counseling Z71.6 Active 527197374 Problem Current moderate episode of major depressive disorder without prior episode F32.1 Active 87685622 Problem Non-adherence to medical treatment Z91.19 Active 506263486 Problem Chronic fatigue R53.82 Active 91664212 Problem Essential hypertension I10 Active 87128678 Problem Nonadherence with dietary restriction Z91.11 Active 254323971 Problem Body mass index (BMI) of 45.0-49.9 in adult Z68.42 Active 693718069 Problem Type 2 diabetes mellitus without complication, without long-term current use of insulin E11.9 Active 451831135 Problem Low serum testosterone level E29.1 Active 170625848 Problem Elevated LDL cholesterol level E78.00 Active 527155193 Problem Hyperinsulinemia E16.1 Active 44322834 Problem Night terrors, adult F51.4 Active 98437690 ALLERGIES No Information ENCOUNTERS Encounter Location Date Diagnosis [facility] [id number], [place] [address] October, [facility] [address], [place] [address] October, [facility] [id number], [place] [address] October, Acute deep vein thrombosis (DVT) of [...] Z91.19 and Right upper quadrant pain R10.11 [place] [id number] [place] [address] October, Influenza-like symptoms R68.89 [place] [id number] [place] [address] Aug, Influenza-like symptoms R68.89 and Body aches R52 [address] [address] Aug, Low serum testosterone level E29.1 [place] [id number] [place] [address] Aug, Chronic fatigue R53.82 [place] [id number] [place] [address] Aug, [place] [id number] [place] [address] Jul, [place] [id number] [place] [address] Jul, Hyperinsulinemia E16.1 ; 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 ; Tobacco abuse Z72.0 ; Body mass index (BMI) of 45.0-49.9 in adult Z68.42 ; Morbid (severe) obesity due to excess calories E66.01 ; Low serum testosterone level E29.1 ; Essential hypertension I10 ; Nonadherence to medical treatment Z91.19 and Nonadherence with dietary restriction Z91.11 [place] [id number] [place] [address] Jul, [place] [id number] [place] [address] May, [address], [place] [address] Nov, Low serum testosterone level E29.1 and Chronic fatigue R53.[address] [place] [address] Nov, Hyperinsulinemia E16.1 ; Tobacco abuse Z72.0 ; Morbid (severe) obesity due to excess calories E66.01 ; Elevated blood pressure reading in office without diagnosis of hypertension R03.0 ; Chronic fatigue R53.82 and Night terrors, adult F51.[address] [place] [address] October, Low serum testosterone level E29.1 [address] [place] [address] October, Encounter for routine adult health examination with abnormal findings Z00.01 ; Morbid (severe) obesity due to excess calories E66.01 ; Family history of heart disease Z82.49 ; Tobacco abuse Z72.0 ; Major depressive disorder, single episode, unspecified F32.9 ; Tobacco abuse counseling Z71.6 and 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 [address] [place] [address] Sep, Encounter for routine adult health examination [...] SOCIAL HISTORY Never Assessed REASON FOR VISIT eye exam PLAN OF CARE VITAL SIGNS MEDICATIONS Unknown Medications RESULTS No Results PROCEDURES No Known procedures INSTRUCTIONS MEDICATIONS ADMINISTERED No Known Medications MEDICAL (GENERAL) HISTORY Type Description Date Medical History supraventricular tachycardia Medical History deep vein thrombosis Medical History depression Surgical History loop recorder removed in 2008- placed at [facility] in [place] Surgical History vein stripping-Dr. Lau Surgical History total tooth extraction Hospitalization History SVT
--- OUTSIDE RECORDS SUMMARY | 2019-01-05 13:22 | XMS REPORT ---
Author Author RADHA NAVARRO Organization [facility] Address [address] [place] [address] Care Team Providers Care Manager Med Surg Name Role Phone RADHA NAVARRO Unavailable PROBLEMS Type Condition ICD9-CM Code XFM88-FA Code Onset Dates Condition Status SNOMED Code Problem Tobacco abuse Z72.0 Active 322705522 Problem 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 Active 68126886 Problem Tobacco abuse counseling Z71.6 Active 407160599 Problem Current moderate episode of major depressive disorder without prior episode F32.1 Active 48223685 Problem Non-adherence to medical treatment Z91.19 Active 668905120 Problem Chronic fatigue R53.82 Active 71303144 Problem Essential hypertension I10 Active 84274366 Problem Nonadherence with dietary restriction Z91.11 Active 840322800 Problem Body mass index (BMI) of 45.0-49.9 in adult Z68.42 Active 714177563 Problem Type 2 diabetes mellitus without complication, without long-term current use of insulin E11.9 Active 983901770 Problem Low serum testosterone level E29.1 Active 956489125 Problem Elevated LDL cholesterol level E78.00 Active 360944137 Problem Hyperinsulinemia E16.1 Active 92859875 Problem Night terrors, adult F51.4 Active 84042633 ALLERGIES No Information ENCOUNTERS Encounter Location Date Diagnosis [facility] [id number], [place] [address] October, [facility] [address], [place] [address] October, [facility] [id number], [place] [address] October, Acute deep vein thrombosis (DVT) of [...] Z91.19 and Right upper quadrant pain R10.11 [place] [id number] [place] [address] October, Influenza-like symptoms R68.89 [place] [address] [id number] [place] [address] Aug, Influenza-like symptoms R68.89 and Body aches R52 [address] [address] Aug, Low serum testosterone level E29.1 [place] [id number] [place] [address] Aug, Chronic fatigue R53.82 [place] [id number] [place] [address] Aug, [place] [id number] [place] [address] Jul, [place] [id number] [place] [address] Jul, Hyperinsulinemia E16.1 ; 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 ; Tobacco abuse Z72.0 ; Body mass index (BMI) of 45.0-49.9 in adult Z68.42 ; Morbid (severe) obesity due to excess calories E66.01 ; Low serum testosterone level E29.1 ; Essential hypertension I10 ; Nonadherence to medical treatment Z91.19 and Nonadherence with dietary restriction Z91.11 [place] [id number] [place] [address] Jul, [place] [id number] [place] [address] May, [address], [place] [address] Nov, Low serum testosterone level E29.1 and Chronic fatigue R53.[address] [place] [address] Nov, Hyperinsulinemia E16.1 ; Tobacco abuse Z72.0 ; Morbid (severe) obesity due to excess calories E66.01 ; Elevated blood pressure reading in office without diagnosis of hypertension R03.0 ; Chronic fatigue R53.82 and Night terrors, adult F51.[address] [place] [address] October, Low serum testosterone level E29.1 [address] [place] [address] October, Encounter for routine adult health examination with abnormal findings Z00.01 ; Morbid (severe) obesity due to excess calories E66.01 ; Family history of heart disease Z82.49 ; Tobacco abuse Z72.0 ; Major depressive disorder, single episode, unspecified F32.9 ; Tobacco abuse counseling Z71.6 and 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 [place] [address] Sep, Encounter for routine adult health examination [...] Decreased libido without sexual dysfunction R68.82 IMMUNIZATIONS Vaccine Route Administration Date Status TESTOSTERONE (PT'S OWN) IM Intramuscular Aug 03, 2017 Administered SOCIAL HISTORY Never Assessed REASON FOR VISIT Injection PLAN OF CARE VITAL SIGNS MEDICATIONS Medication Instructions Dosage Frequency Start Date End Date Duration Status Testosterone Cypionate 100 MG/ML Intramuscular once monthly 1 ml Aug, 30 days Active RESULTS No Results PROCEDURES Procedure Date Ordered Result Body Site TESTOSTERONE (PT'S OWN) Aug 03, 2017 THER/PROPH/DIAG INJ, SC/IM Aug 03, 2017 INSTRUCTIONS MEDICATIONS ADMINISTERED No Known Medications MEDICAL (GENERAL) HISTORY Type Description Date Medical History supraventricular tachycardia Medical History deep vein thrombosis Medical History depression Surgical History loop recorder removed in 2008- placed at [facility] in [place] Surgical History vein stripping-Dr. Lau Surgical History total tooth extraction Hospitalization History SVT
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
[2019-01-05 13:42] LABS: BASOPHILS # (AUTO) 0.1 10^3/uL (0.0-0.1); BASOPHILS % (AUTO) 1 % (0-10); EOSINOPHILS # (AUTO) 0.4 10^3/uL (0.0-0.3); EOSINOPHILS % (AUTO) 4 % (0-10); HEMATOCRIT 50 % (40-54); HEMOGLOBIN 17.2 G/DL (13.3-17.7); LYMPHOCYTES # (AUTO) 2.8 X 10^3 (1.0-4.0); LYMPHOCYTES % (AUTO) 27 % (12-44); MEAN CORPUSCULAR HEMOGLOBIN 30 PG (25-34); MEAN CORPUSCULAR HGB CONC 34 G/DL (32-36); MEAN CORPUSCULAR VOLUME 87 FL (80-99); MEAN PLATELET VOLUME 11.2 FL (7.4-10.4); MONOCYTES % (AUTO) 9 % (0-12); NEUTROPHILS # (AUTO) 6.4 X 10^3 (1.8-7.8); NEUTROPHILS % (AUTO) 60 % (42-75); PLATELET COUNT 234 10^3/uL (130-400); RED CELL DISTRIBUTION WIDTH 14.1 % (10.0-14.5); WHITE BLOOD COUNT 10.6 10^3/uL (4.3-11.0)
--- NOTE | 2019-01-05 13:49 | Diagnostic Imaging Report ---
PROCEDURE: CT head wo r/o stroke. TECHNIQUE: Multiple contiguous axial images were obtained through the brain without the use of intravenous contrast. Auto Exposure Controls were utilized during the CT exam to meet ALARA standards for radiation dose reduction. INDICATION: Right-sided facial numbness. COMPARISON: CT head of 01/28/2009. FINDINGS: No hyperdense hemorrhage or space-occupying mass. No hydrocephalus or midline shift. [place] and white matter differentiation is preserved. No acute skull fracture. Paranasal sinuses and mastoid air cells are clear. IMPRESSION: No acute intracranial process by CT. Dictated by: Dictated on workstation # [id number]
[2019-01-05 13:55] LABS: PROTHROMBIN TIME PATIENT 13.1 SEC (12.2-14.7)
[2019-01-05 14:04] LABS: ERYTHROCYTE SEDIMENTATION RATE 1 MM/HR (0-15)
[2019-01-05 14:05] LABS: ALANINE AMINOTRANSFERASE 79 U/L (0-55); ALBUMIN 4.4 GM/DL (3.2-4.5); ALKALINE PHOSPHATASE 70 U/L (40-136); BILIRUBIN,TOTAL 0.5 MG/DL (0.1-1.0); BUN/CREATININE RATIO 16; CALCIUM 9.4 MG/DL (8.5-10.1); CARBON DIOXIDE 22 MMOL/L (21-32); CHLORIDE 103 MMOL/L (98-107); CREATININE SERUM 1.13 MG/DL (0.60-1.30); GFR ESTIMATED > 60; GLUCOSE 168 MG/DL (70-105); MAGNESIUM 2.4 MG/DL (1.8-2.4); POTASSIUM 3.9 MMOL/L (3.6-5.0); SODIUM 136 MMOL/L (135-145); TOTAL PROTEIN 7.5 GM/DL (6.4-8.2)
[2019-01-05] MEDS ORDERED: IOHEXOL 350 MG/ML 100 ML (OMNIPAQUE 350) VIAL IV ONE (14:15)
[2019-01-05] MEDS ORDERED: NS 100 ML (IVPB) BAG IV ONE (14:15)
[2019-01-05] MEDS ORDERED: HOLD METFORMIN - RECEIVED CONTRAST 20 ML VIAL IV SCH (14:15)
[2019-01-05 15:00] LABS: BILIRUBIN,URINE NEGATIVE (NEGATIVE); CLARITY,URINE CLEAR; COLOR,URINE YELLOW; GLUCOSE, URINE (UA) 1+ (NEGATIVE); KETONES,URINE NEGATIVE (NEGATIVE); LEUKOCYTE ESTERASE ,URINE NEGATIVE (NEGATIVE); NITRITE,URINE NEGATIVE (NEGATIVE); PH,URINE 7 (5-9); PROTEIN,URINE 1+ (NEGATIVE); UROBILINOGEN,URINE 4 MG/DL (NORMAL)
[2019-01-05 15:07] LABS: BACTERIA,URINE NEGATIVE /HPF; SQUAMOUS EPITHELIAL CELL,UR 0-2 /HPF
[2019-01-05 15:16] LABS: AMPHETAMINE SCREEN, URINE NEGATIVE (NEGATIVE); BARBITURATE SCREEN URINE NEGATIVE (NEGATIVE); BENZODIAZEPINES SCREEN URINE NEGATIVE (NEGATIVE); CANNABINOID SCREEN, URINE NEGATIVE (NEGATIVE); COCAINE SCREEN URINE NEGATIVE (NEGATIVE); METHADONE STAT NEGATIVE (NEGATIVE); METHAMPHETAMINE SCREEN URINE S NEGATIVE (NEGATIVE); OPIATE SCREEN URINE NEGATIVE (NEGATIVE); OXYCODONE STAT NEGATIVE (NEGATIVE); PROPOXYPHENE STAT NEGATIVE (NEGATIVE); TRICYCLIC ANTIDEPRESSANTS SCRE NEGATIVE (NEGATIVE)
--- NOTE | 2019-01-05 15:36 | Diagnostic Imaging Report ---
Procedure: CT angiography of the head and CT angiography of the neck with and without contrast. Technique: Contiguous noncontrast images were obtained from the skull base through the vertex. After intravenous contrast administration, helical CT angiography of the neck was performed. Source data was reformatted into multiple MIP projections. Delayed post contrast acquisition was also obtained. Auto Exposure Controls were utilized during the CT exam to meet ALARA standards for radiation dose reduction. Indication: New onset right-sided facial numbness with intermittent right facial pain and inability to open the right eye. Comparison: Head CT same date. Discussion: CT head: No acute intracranial hemorrhage, mass, midline shift or hydrocephalus. The ventricles and sulci are normal size and configuration for age. The visualized portions of the orbits, paranasal sinuses, mastoid air cells and calvarium are unremarkable. CTA head: Intracranial arterial luminal enhancement and morphology are normal without focal stenosis, major vessel cut off, aneurysm or vascular malformation. The [place] is complete. Visualized venous structures are unremarkable. CTA neck: Due to artifact from the patient body habitus, origin of the great vessels is very difficult to visualize. The arch has conventional branch configuration. The vertebral arteries are codominant. The carotid arteries bifurcate midneck without focal stenosis, vessel cut off, or vascular malformation within the neck. The visualized soft tissues are unremarkable. Impression: Unremarkable CTA of the head and neck. Evaluation of the origin of the great vessels is limited due to patient body habitus and underlying artifact. Dictated by: Dictated on workstation # [id number]
[2019-01-05] MEDS ORDERED: VALA10004 PO (15:49)
[2019-01-05] MEDS ORDERED: METH4TAB PO (15:49)
--- NOTE | 2019-01-05 15:49 | ED General ---
General Chief Complaint: Neuro-Stroke Like Symptoms Stated Complaint: FACIAL NUMBNESS Nursing Triage Note: ARRIVED VIA AMB TO TRIAGE. STATES YESTERDAY THE RIGHT SIDE OF HIS FACE WENT NUMB. TODAY HE FELT A LIGHTNING BOLT PAIN DOWN THE RIGHT SIDE OF HIS FACE AND NOW HE CANT OPEN HIS EYE VERY WELL. STATES HE HAD DIARRHEA A COUPLE OF DAYS AGO. Nursing Sepsis Screen: No Definite Risk Allergies and Home Medications Allergies Coded Allergies: No Known Drug Allergies (Verified , 09/28/08) Past Yhlpvcl-Irxswn-Golalz Hx Patient Social History Alcohol Use: Occasionally Uses Recreational Drug Use: No (STATES "IM AROUND A LOT OF POT BUT DONT SMOKE IT" ) Smoking Status: Current Everyday Smoker Type Used: Cigarettes 2nd Hand Smoke Exposure: No Recent Foreign Travel: No Contact w/Someone Who Travel: No Recent Infectious Disease Expo: No Recent Hopitalizations: No Seasonal Allergies Seasonal Allergies: No Past Medical History Surgeries: Yes (VEIN STRIPPING SURG IN LEG ) Respiratory: No Cardiac: Yes (SVT) Deep Vein Thrombosis, Irregular Heartbeat Neurological: No Reproductive Disorders: No Genitourinary: No Gastrointestinal: No Musculoskeletal: No Endocrine: Yes Diabetes, Non-Insulin dep HEENT: No Cancer: No Psychosocial: No Integumentary: No Blood Disorders: Yes (FACTOR V) Family Medical History Other Conditions/Hx Physical Exam Vital Signs Vital Signs - First Documented 01/05/19 13:15 Temp 98.0 Pulse 96 B/P (MAP) 145/93 (110) Pulse Ox 94 O2 Delivery Room Air Capillary Refill : Less Than 3 Seconds Height, Weight, BMI Height: 5'9.00" Weight: 310lbs. oz. 140.302589sv; 38.74 BMI Method:Stated Progress/Results/Core Measures Suspected Sepsis Recent Fever Within 48 Hours: No Infection Criteria Present: None New/Unexplained Altered Menta: No Sepsis Screen: No Definite Risk SIRS Temperature:98.0 Pulse: 96 Respiratory Rate: Laboratory Tests 01/05/19 13:34: White Blood Count 10.6 Blood Pressure 145 /93 Mean: 110 Laboratory Tests 01/05/19 13:34: Creatinine 1.13, INR Comment 1.0, Platelet Count 234, Total Bilirubin 0.5 Results/Orders Lab Results Laboratory Tests Test 01/05/19 13:34 01/05/19 14:45 Range/Units White Blood Count 10.6 4.3-11.0 10^3/uL Red Blood Count 5.74 4.35-5.85 10^6/uL Hemoglobin 17.2 13.3-17.7 G/DL Hematocrit 50 40-54 % Mean Corpuscular Volume 87 80-99 FL Mean Corpuscular Hemoglobin 30 25-34 PG Mean Corpuscular Hemoglobin Concent 34 32-36 G/DL Red Cell Distribution Width 14.1 10.0-14.5 % Platelet Count 234 130-400 10^3/uL Mean Platelet Volume 11.2 H 7.4-10.4 FL Neutrophils (%) (Auto) 60 42-75 % Lymphocytes (%) (Auto) 27 12-44 % Monocytes (%) (Auto) 9 0-12 % Eosinophils (%) (Auto) 4 0-10 % Basophils (%) (Auto) 1 0-10 % Neutrophils # (Auto) 6.4 1.8-7.8 X 10^3 Lymphocytes # (Auto) 2.8 1.0-4.0 X 10^3 Monocytes # (Auto) 1.0 0.0-1.0 X 10^3 Eosinophils # (Auto) 0.4 H 0.0-0.3 10^3/uL Basophils # (Auto) 0.1 0.0-0.1 10^3/uL Erythrocyte Sedimentation Rate 1 0-15 MM/HR Prothrombin Time 13.1 12.2-14.7 SEC INR Comment 1.0 0.8-1.4 Activated Partial Thromboplast Time 28 24-35 SEC Sodium Level 136 135-145 MMOL/L Potassium Level 3.9 3.6-5.0 MMOL/L Chloride Level 103 98-107 MMOL/L Carbon Dioxide Level 22 21-32 MMOL/L Anion Gap 11 5-14 MMOL/L Blood Urea Nitrogen 18 7-18 MG/DL Creatinine 1.13 0.60-1.30 MG/DL Estimat Glomerular Filtration Rate > 60 BUN/Creatinine Ratio 16 Glucose Level 168 H 70-105 MG/DL Calcium Level 9.4 8.5-10.1 MG/DL Corrected Calcium 9.1 8.5-10.1 MG/DL Magnesium Level 2.4 1.8-2.4 MG/DL Total Bilirubin 0.5 0.1-1.0 MG/DL Aspartate Amino Transf (AST/SGOT) 46 H 5-34 U/L Alanine Aminotransferase (ALT/SGPT) 79 H 0-55 U/L Alkaline Phosphatase 70 40-136 U/L Total Protein 7.5 6.4-8.2 GM/DL Albumin 4.4 3.2-4.5 GM/DL Urine Color YELLOW Urine Clarity CLEAR Urine pH 7 5-9 Urine Specific [place] 1.010 L 1.016-1.022 Urine Protein 1+ H NEGATIVE Urine Glucose (UA) 1+ H NEGATIVE Urine Ketones NEGATIVE NEGATIVE Urine Nitrite NEGATIVE NEGATIVE Urine Bilirubin NEGATIVE NEGATIVE Urine Urobilinogen 4 H NORMAL MG/DL Urine Leukocyte Esterase NEGATIVE NEGATIVE Urine RBC (Auto) NEGATIVE NEGATIVE Urine RBC NONE /HPF Urine WBC NONE /HPF Urine Squamous Epithelial Cells 0-2 /HPF Urine Crystals NONE /LPF Urine Bacteria NEGATIVE /HPF Urine Casts NONE /LPF Urine Mucus NEGATIVE /LPF Urine Culture Indicated NO Urine Opiates Screen NEGATIVE NEGATIVE Urine Oxycodone Screen NEGATIVE NEGATIVE Urine Methadone Screen NEGATIVE NEGATIVE Urine Propoxyphene Screen NEGATIVE NEGATIVE Urine Barbiturates Screen NEGATIVE NEGATIVE Ur Tricyclic Antidepressants Screen NEGATIVE NEGATIVE Urine Phencyclidine Screen NEGATIVE NEGATIVE Urine Amphetamines Screen NEGATIVE NEGATIVE Urine Methamphetamines Screen NEGATIVE NEGATIVE Urine Benzodiazepines Screen NEGATIVE NEGATIVE Urine Cocaine Screen NEGATIVE NEGATIVE Urine Cannabinoids Screen NEGATIVE NEGATIVE My Orders Orders - STEPHANIE GALLARDO DO Ed Iv/Invasive Line Start (01/05/19 13:24) Ekg Tracing (01/05/19 13:24) Monitor-Rhythm Ecg Trace Only (01/05/19 13:24) Ct Head Wo-R/O Stroke (01/05/19 13:24) Cbc With Automated Diff (01/05/19 13:24) Comprehensive Metabolic Panel (01/05/19 13:24) Erythrocyte Sedimentation Rate (01/05/19 13:24) Magnesium (01/05/19 13:24) Protime With Inr (01/05/19 13:24) Partial Thromboplastin Time (01/05/19 13:24) Drug Screen Stat (Urine) (01/05/19 13:54) Ua Culture If Indicated (01/05/19 13:54) Ct Angio Head/Neck (01/05/19 13:54) Iohexol Injection (Omnipaque 350 Mg/Ml 1 (01/05/19 14:15) Ns (Ivpb) (Sodium Chloride 0.9% Ivpb Bag (01/05/19 14:15) Received Contrast (Hold Metformin- Contr (01/05/19 14:15) Methylprednisolone Sod Succ (Solu-Medrol (01/05/19 16:00) Vital Signs/I&O 01/05/19 13:15 Temp 98.0 Pulse 96 B/P (MAP) 145/93 (110) Pulse Ox 94 O2 Delivery Room Air Capillary Refill : Less Than 3 Seconds Blood Pressure Mean: 110 Departure Impression Primary Impression: Right-sided Dsouza's palsy Disposition: HOME, SELF-CARE Condition: Stable Departure-Patient Inst. Referrals: [facility] (PCP) Primary Care Physician KADEN LERMA APRN (Family) Primary Care Physician Patient Instructions: Dsouza's Palsy (DC) Add. Discharge Instructions: TAKE YOUR MEDICATIONS PRESCRIBED--DO NOT MISS DOSES OF MEDICATIONS!!! FOLLOW UP WITH YOUR DR TOMORROW FOR FURTHER CARE NO DRIVING OR WORK UNTIL RELEASED BY YOUR DR All discharge instructions reviewed with patient and/or family. Voiced understanding. Scripts Valacyclovir HCl (Valtrex) 1,000 Mg Tablet 1000 MG PO TID, #30 TAB Prov: STEPHANIE GALLARDO DO 01/05/19 Methylprednisolone (Medrol) 4 Mg Tab.ds.pk 4 MG PO UD, #1 PKG Prov: STEPHANIE GALLARDO DO 01/05/19 STEPHANIE GALLARDO DO Jan 05, 2019 15:49
[2019-01-05 16:00] VITALS: BP 145/93
[2019-01-05] MEDS ORDERED: methylPREDNISolone 125 MG (Solu-MEDROL) VIAL IVP ONE (16:00)
== END 2019-01-05 16:00 | disposition home or self-care (01) ==
LOC: EDUNIT# 13:14 → ER 13:16
DX: G51.0 Bell's palsy (principal); E11.9 Type 2 diabetes mellitus without complications; F17.210 Nicotine dependence, cigarettes, uncomplicated; Z86.718 Personal history of other venous thrombosis and embolism
CPT/HCPCS: 36415; 70450; 70496; 70498; 80053; 80306; 81000; 83735; 85025; 85610; 85652; 85730; 93005; 93041; 96374

== ENCOUNTER 2022-01-28 14:55 | Observation (INO) | payer SELFPAY ==
[~2022-01-28] VITALS: Ht 177.8 cm; Wt 129.5 kg
[~2022-01-28 14:55] MED LIST changes: +CYCL10TA25 PO; -CYCL10TA9 PO; +METH4TAB PO; +VALA10004 PO
[2022-01-28] MEDS ORDERED: NS IV 1000 ML 1,000 ML IV SCH (16:45)
[2022-01-28] MEDS ORDERED: ONDANSETRON 4 MG/2 ML (SDV) Z0FRAN IV PRN (16:45)
[2022-01-28] MEDS ORDERED: MELATONIN 3 MG TABLET PO PRN (16:45)
[2022-01-28] MEDS ORDERED: ACETAMINOPHEN 325 MG TABLET PO PRN (16:45)
[2022-01-28] MEDS ORDERED: CALCIUM CARBONATE 500 MG (TUMS) TAB.CHEW PO PRN (16:45)
[2022-01-28 17:23] VITALS: BP 113/63
[2022-01-28] MEDS ORDERED: NS (IVPB) 100 ML ONE (18:18)
[2022-01-28] MEDS ORDERED: LORazepam INJ 2 MG/ML (ATIVAN) VIAL ONE ×2 (18:28→20:52)
[2022-01-28] MEDS ORDERED: LORazepam INJ 2 MG/ML (ATIVAN) VIAL IVP PRN ×2 (18:30→21:15)
[2022-01-28] MEDS ORDERED: cefTRIAXone 1 GM PRE-MIX 50 ML IV ONE ×2 (18:45→18:49)
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
[2022-01-28 19:41] VITALS: BP 125/81
[2022-01-28] MEDS ORDERED: inSUlin ASPART (NovoLOG) 1 UNIT/0.01 ML (CHARGE PER UNIT) SC SCH (21:00)
== END 2022-01-28 23:13 | disposition left against medical advice (07) ==
LOC: UNDOADMOB 16:50 → 4TH 16:50 → UNDODISOB 23:15
PROVIDERS: ADMIT Family Medicine; ATTEND Family Medicine
DX: R56.9 Unspecified convulsions (principal); D68.51 Activated protein C resistance; E66.01 Morbid (severe) obesity due to excess calories; Z68.41 Body mass index [BMI] 40.0-44.9, adult; F17.210 Nicotine dependence, cigarettes, uncomplicated
CPT/HCPCS: 82947; 96372; 96374; 96375; G0378; G0379